=== PATIENT | female | born 1970 | race Caucasian/White ===

== ENCOUNTER → 2017-08-26 10:12 | Outpatient (CLI) | payer MEDICAID, SELFPAY ==
--- NOTE | 2017-08-26 10:16 | XR_ITS ---
XR DEXA axial skeleton HISTORY: ITS.REASON: SCREENING,FCI USE OF MEDS ORDERING PHYSICIAN: Geoffrey Villalta MD PATIENT AGE: 46 years COMPARISON: 07/21/2013 FINDINGS: The BMD measured at the left femoral neck is 0.966 g/cm squared with a T score of -0.5 . This is considered normal according to the World Health Organization criteria. Fracture risk is low. Treatment is advised. L1 L4 density has a T score of 0.9. No L-spine density is increased by 6% and the hip density is increased by 4% compared to the previous exam IMPRESSION: Normal bone density. Recommend follow-up exam August 2019
--- NOTE | 2017-08-26 10:16 | MM_ITS ---
MM Dig screening mamm BI w/CAD CAD Screening COMPARISON: Digital mammograms 07/21/2013 and additional views left breast for 2 2013 INDICATION: There is a history of breast cancer in patient's grandmother. TECHNIQUE: Standard CC and MLO images were obtained. R2 CAD reviewed. FINDINGS: Moderate diffuse fiber glandular densities are seen in both breast primarily upper outer quadrants. There are stable asymmetric nodular densities left breast. There is no suspicious lesion and no suspicious microcalcifications. IMPRESSION: Fibrofatty parenchyma with no suspicious lesion seen BI-RADS Category: 2 Benign Finding(s) RECOMMENDED FOLLOW-UP: 1YR - 1 YEAR FOLLOW-UP (A letter has been sent to the patient regarding results of the study.)
== END ==
PROVIDERS: PCP Emergency Medicine; Visit Provider Obstetrics & Gynecology
DX: Z12.31 Encounter for screening mammogram for malignant neoplasm of breast (principal); Z78.0 Asymptomatic menopausal state; Z13.820 Encounter for screening for osteoporosis
CPT/HCPCS: 77067; 77080

== ENCOUNTER 2018-01-03 07:24 | Observation (INO) ==
--- NOTE | 2018-01-03 08:41 | Emergency Department Note ---
ED Disposition Clinical Impression: Perianal abscess, Tobacco use Disposition: Home, Self-Care Condition on Discharge: Good Instructions: DI for Skin Abscess Referrals: Sim Lakhani MD [Primary Care Provider] - - Critical Care Critical Care Time: No Attestation: On 01/03/18, the high probability of a clinically significant, sudden or life threatening deterioration of the following system(s) required my full and direct attention, intervention and personal management. The time I documented below is in addition to time spent performing reported procedures but includes the following listed in this critical care notation. Medical Decision Making - Medical Records Medical records reviewed: Yes: I reviewed the patient's medical records. - Jonny Inquiry Pt receiving controlled substance: No Vital Signs: 01/03/18 07:29 01/03/18 08:55 01/03/18 10:00 Temperature 98.3 F Temperature Source Oral Pulse Rate [Right Brachial] 82 72 68 Respiratory Rate 18 18 18 Blood Pressure [Right Arm] 132/92 123/80 139/64 Blood Pressure Mean [Right Arm] 105 94 89 Blood Pressure Source [Right Arm] Automatic Cuff Automatic Cuff Automatic Cuff Blood Pressure Position [Right Arm] Sitting Sitting Sitting 02 Sat by Pulse Oximetry 99 98 100 Oxygen Delivery Method Room Air Room Air Room Air 01/03/18 10:46 Temperature Temperature Source Pulse Rate [Right Brachial] 70 Respiratory Rate 18 Blood Pressure [Right Arm] 121/70 Blood Pressure Mean [Right Arm] 87 Blood Pressure Source [Right Arm] Automatic Cuff Blood Pressure Position [Right Arm] Sitting 02 Sat by Pulse Oximetry 100 Oxygen Delivery Method Room Air - Lab Data Lab results reviewed: Yes: I reviewed the patient's lab results. Lab Results 01/03/18 08:35: Stool Occult Blood Negative 01/03/18 08:50: WBC 16.7 H, RBC 4.68, Hgb 15.2, Hct 46.4, MCV 99.1 H, MCH 32.5 H , MCHC 32.8, RDW 12.4, Plt Count 339, MPV 6.9 L, Neut % (Auto) 78.5, Lymph % ( Auto) 15.8, [place] % (Auto) 4.6, Eos % (Auto) 0.9, Baso % (Auto) 0.2, Neut # (Auto ) 13.1 H, Lymph # (Auto) 2.7, [place] # (Auto) 0.8, Eos # (Auto) 0.2, Baso # (Auto ) 0.0, Total Counted 100, Neutrophils % (Manual) 86 H, Band Neutrophils % 2.0, Lymphocytes % (Manual) 6 L, Monocytes % (Manual) 6, Platelet Estimate Normal, ESR 33 H 01/03/18 08:50: Sodium 138, Potassium 3.6, Chloride 104, Carbon Dioxide 23, Anion Gap 14.6, BUN 8, Creatinine 0.88, Estimated Creat Clear 90, Estimated GFR 69, Est GFR ( Amer) 83, Glucose 113 H, Calcium 9.3, Total Bilirubin 1.0, AST 8 L, ALT 28, Alkaline Phosphatase 78, C-Reactive Protein 1.8 H, Total Protein 7.8, Albumin 3.9, Globulin 3.9 H, Albumin/Globulin Ratio 1.0 L 01/03/18 08:50: Lactate 1.0 01/03/18 09:00: Urine Color Yellow, Urine Appearance Clear, Urine pH 6.0, Ur Specific [place] 1.025, Urine Protein Negative, Urine Glucose (UA) Negative, Urine Ketones Negative, Urine Blood Trace-l, Urine Nitrate Negative, Urine Bilirubin Negative, Urine Urobilinogen 0.2, Ur Leukocyte Esterase Negative, Urine WBC Occasional, Ur Squamous Epith Cells Occasional, Urine Bacteria 2+, Urine Mucus 4+ 01/03/18 09:00: Urine HCG, Qual Negative Result diagrams: 01/03/18 08:50 01/03/18 08:50 Orders (Tests/Meds): ED MEDICATIONS Generic Name Dose Route Start Last Admin Trade Name Freq PRN Reason Stop Dose Admin Sodium Chloride 1,000 mls @ 200 mls/hr 01/03/18 08:45 01/03/18 08:57 Sod Chlor 0.9% 1000ml Bag IV 02/02/18 08:44 200 mls/hr .Q5H VITO Administration Ampicillin Sodium/Sulbactam 100 mls @ 200 mls/hr 01/03/18 11:45 Sodium 3 gm/ Sodium Chloride IV 01/17/18 11:44 Q6H VITO Protocol Sodium Chloride 10 ml 01/03/18 10:40 01/03/18 10:44 Rad-Saline Flush 10ml Syringe IV 02/02/18 10:39 10 ml NEEDED PRN Administration Maintain IV Site Discontinued Medications Generic Name Dose Route Start Last Admin Trade Name Freq PRN Reason Stop Dose Admin Diatrizoate Meglum/Diatrizoate Sod 30 ml 01/03/18 08:51 01/03/18 08:57 Gastrografin 66%-10% 30ml PO 01/03/18 08:52 30 ml ONCE ONE Administration Hydromorphone HCl 1 mg 01/03/18 11:36 Dilaudid 2mg/Ml Syringe IV 01/03/18 11:37 ONCE ONE Iopamidol 75 ml 01/03/18 10:40 01/03/18 10:44 [id number]; 75ml Vial IV 01/03/18 10:41 75 ml ONCE ONE Administration Protocol Ketorolac Tromethamine 30 mg 01/03/18 10:42 01/03/18 10:46 Toradol 30mg/Ml Vial IV 01/03/18 10:43 30 mg ONCE ONE Administration Ondansetron HCl 4 mg 01/03/18 11:36 Zofran 4mg/2ml Vial IV 01/03/18 11:37 ONCE ONE ORDERS Category Date Time Status Blood Culture Stat Micro 01/03/18 08:50 Received Urine Culture Stat Micro 01/03/18 09:00 Received - CT Data CT Scan: Abdomen, Pelvis Time Received: 11:[address] Reviewed: Yes: I have viewed the radiologist's interpretation Preliminary Findings: Abnormal (see report) - Physician Consults Physician Consulted: krystal Reason -: Pt condition Skin/Abscess/FB HPI - General Chief complaint: Skin/Abscess/Foreign Body Stated complaint: cyst and nausea Time Seen by Provider: 01/03/18 08:00 Mode of Arrival: Ambulatory Source of Information: Patient, Medical Record Limitations: No Limitations Description of Symptoms (Recalled from ER Triage Doc. by RN): Pt reports she is concerned she may have a rectal abscess. Pt reports has pressure on L side of rectal area x3 days. Pt reports has had normal BMs. Pt reports she had a rectal abscess 15 years ago with similar symptoms - History of Present Illness HPI narrative: over the last few days has perirectal pain with no fever or vomiting and blood in stool complaint: abscess/boil Onset (ago): day(s) Tetanus up to date: unsure Severity: moderate Associated symptoms: denies other symptoms Treatments prior to arrival: none - Related Data Home Medications Medication Instructions Recorded Confirmed cholecalciferol (vitamin D3) 5,000 5,000 unit PO DAILY cap 10/11/17 01/03/18 unit capsule Lisinopril/Hydrochlorothiazide 1 tab PO DAILY 01/03/18 01/03/18 [Lisinopril-Hctz 10-12.5 mg Tab] Medroxyprogesterone Acetate 150 mg IM [id number] 01/03/18 01/03/18 [Depo-Provera] Allergies Allergy/AdvReac Type Severity Reaction Status Date / Time No Known Allergies Allergy Verified 01/03/18 07:35 [facility] History I have reviewed the patient's past medical history: Yes Medical History: Denies:: Cancer, Diabetes Mellitus Type 1, Diabetes Mellitus Type 2 Laterality Cases: Right: Carpal Tunnel Release - Social History Smoking Status: Current every day smoker Tobacco Type: cigarettes # Packs/Day (cigarettes): 1 Alcohol Intake: current Alcohol Intake Frequency:: holidays/special occasions only - Psychiatric History Expresses thoughts of harming self/others: None Suicide Plan Description: No Plan ROS Obtained: Yes All systems reviewed & no additional complaints - Constitutional Constitutional: Denies fever(s) - Eyes Eyes: Denies change in vision - ENT Ears, Nose, Mouth, and Throat: Denies dizziness - Cardiovascular Cardiovascular: Denies chest pain - Respiratory Respiratory: No cough - Gastrointestinal Gastrointestingal: Reports: as per HPI, other. Denies: abdominal pain, bright red blood in stools, black, tarry stools - Genitourinary Female Genitourinary: Denies hematuria - Musculoskeletal Musculoskeletal: Denies joint pain - Integumentary/Breasts Skin/Breast: Denies rash - Neurologic Neurologic: Denies seizure-like activity Physical Exam - General General appearance: alert - Head Head exam: normocephalic - Eye Eye exam: Present: PERRL, EOMI - ENT ENT exam: Present: mucous membranes moist - Neck Neck exam: Present: trachea midline - Respiratory Respiratory exam: Present: normal lung sounds bilaterally - Cardiovascular Cardiovascular exam: Present: regular rate. Absent: systolic murmur - Abdominal Exam Abdominal exam: Present: soft Abdominal tenderness: Present: moderate - Rectal Exam Rectal exam: Present: normal rectal tone, heme (-) stool, tenderness - Neurological Exam Neurological exam: Present: alert, oriented X3, CN II-XII intact - Psychiatric Psychiatric exam: Present: normal affect - Skin Skin exam: Absent: rash
[2018-01-03 09:24] LABS: Appearance,Urine CLEAR (Clear); Bilirubin,Urine Negative (Negative); Blood, Urine TRACE-L (Negative); Color,Urine YELLOW (Yellow); Glucose,Urine (UA) Negative (Negative); Ketones,Urine Negative (Negative); Leukocyte Esterase,Urine Negative (Negative); Microscopic, Urine URINE MICROSCOPIC (MICROSCOPIC); Protein,Urine Negative (Negative); Specific Gravity, Urine 1.025 (1.005-1.030); Urobilinogen,Urine 0.2 EU/dl (0.2)
[2018-01-03 09:30] LABS: Basophils % 0.2 % (0.1-2.0); Eosinophils # 0.2 K/mm3 (0.0-0.4); Eosinophils % 0.9 % (0.1-12.0); Hematocrit 46.4 % (37.0-47.0); Hemoglobin 15.2 g/dL (12.2-16.2); Lymphocytes # 2.7 K/mm3 (0.7-4.5); Lymphocytes % 15.8 K/mm3 (10-50); Mean Corpuscular HGB Conc 32.8 g/dL (31.8-35.4); Mean Corpuscular Hemoglobin 32.5 pg (27.0-31.2); Mean Corpuscular Volume 99.1 fl (81-99); Mean Platelet Volume 6.9 fl (7.4-10.4); Monocytes # 0.8 K/mm3 (0.1-1.0); Monocytes % 4.6 % (1.7-9.3); Neutrophils # 13.1 K/mm3 (1.8-7.8); Neutrophils % 78.5 % (37.0-80.0); Platelet Count 339 K/mm3 (142-424); Red Blood Count 4.68 M/mm3 (4.20-5.40); Red Cell Distribution Width 12.4 % (11.5-17.5); White Blood Count 16.7 K/mm3 (4.8-10.8)
[2018-01-03 09:33] LABS: Bacteria,Urine 2+ /lpf; Mucus,Urine 4+ /lpf; Squamous Epithelial Cell,Urine Occasional #/hpf (0-5); WBC,Urine Occasional #/hpf (0-3)
[2018-01-03 09:38] LABS: Albumin Level 3.9 gm/dL (3.4-5.0); Anion Gap 14.6 mEq/L (5-15); C-Reactive Protein 1.8 mg/L (0.0-0.9); Calcium 9.3 mg/dL (8.5-10.1); Globulin 3.9 gm/dl (1.3-3.2); Potassium 3.6 mmoL/L (3.5-5.1); Total Protein,Serum 7.8 gm/dL (6.4-8.2)
[2018-01-03 10:10] LABS: Lymphocytes % 6 % (10-50); Monocytes % 6 % (2-9); Neutrophils % 86 % (42-76); Total Cells Counted 100
[2018-01-03 11:02] LABS: Erythrocyte Sedimentation Rate 33 mm/hr (0-20)
--- NOTE | 2018-01-03 13:21 | Pharmacy Consult Notes ---
[facility] Pharmacy VTE Monitoring - Patient Demographics Admission date: 01/03/18 Report Date: 01/03/18 Time: 13:21 Allergies/Adverse Reactions: Patient Allergies No Known Allergies Allergy (Verified 01/03/18 07:35) Height: 1.63 m Weight: 72.235 kg Patient Problems: Current Active Problems Perianal abscess (Acute) Tobacco use (Acute) - VTE Risk Labs: VTE Related Lab Results Hgb 15.2 g/dL (12.2-16.2) 01/03/18 08:50 Hct 46.4 % (37.0-47.0) 01/03/18 08:50 Plt Count 339 K/mm3 (142-424) 01/03/18 08:50 BUN 8 mg/dL (7-18) 01/03/18 08:50 Creatinine 0.88 mg/dL (0.55-1.02) 01/03/18 08:50 Estimated Creat Clear 90 mL/min (0-300) 01/03/18 08:50 VTE Score: 1 VTE Risk Level: Very Low Risk Clinical Trial Participant: No - Prophylaxis VTE Prophylaxis Ordered?: Yes Types of VTE Prophylaxis: TEDS Knee High
--- NOTE | 2018-01-03 15:31 | Consult Report ---
*Admission Date: 01/03/18 *Chief complaint: "Rectal pain" *History of present illness: Patient is a 47-year-old white female. She is a history of perianal abscess about 15 or 16 years ago which apparently required incision and drainage under local. This was done at an outside facility. She was in her usual state of health until Wednesday, 2 days ago, she developed some pain near the prior area. She denied any bleeding. Denied drainage. She presented to the emergency department where rectal exam revealed some minor induration. She had CT scan performed which revealed findings of left posterior 3 cm abscess. She was admitted for inpatient management and surgical consultation. Review of Systems - Review of Systems Review of systems:: pertinent systems reviewed and negative unless documented below - *Neurologic Denies dizziness, Denies seizure-like activity [facility] History Medical History: Reports:: Hypertension Denies:: Cancer, Diabetes Mellitus Type 1, Diabetes Mellitus Type 2, MRSA Laterality Cases: Right: Carpal Tunnel Release Other Surgeries: Yes: Amputation: No Fractures: No - *Social History Educational Level: Completed College Smoking Status: Current some day smoker Tobacco Type: cigarettes # Packs/Day (cigarettes): 1 #Yrs smoked (if former smoker): 20 Alcohol Intake: current Alcohol Intake Frequency:: a few times a week Occupational Status: employed Housing: house Household Members: spouse, children - Psychiatric History Expresses thoughts of harming self/others: None Suicide Plan Description: No Plan *Family Hx:: Cancer, Diabetes Meds Home Medications Medication Instructions Recorded Confirmed Type cholecalciferol (vitamin D3) 5,000 5,000 unit PO DAILY cap 10/11/17 01/03/18 History unit capsule Lisinopril/Hydrochlorothiazide 1 tab PO DAILY 01/03/18 01/03/18 History [Lisinopril-Hctz 10-12.5 mg Tab] Medroxyprogesterone Acetate 150 mg IM [id number] 01/03/18 01/03/18 History [Depo-Provera] Allergies Allergy/AdvReac Type Severity Reaction Status Date / Time No Known Allergies Allergy Verified 01/03/18 07:35 Exam Vital signs and Labs for Last 24 Hours: Temp Pulse Resp BP Pulse Ox 98.2 F 74 18 118/78 97 01/03/18 12:40 01/03/18 12:40 01/03/18 12:40 01/03/18 12:40 01/03/18 12:40 Laboratory Results - last 24 hr 01/03/18 08:35: Stool Occult Blood Negative 01/03/18 08:50: WBC 16.7 H, RBC 4.68, Hgb 15.2, Hct 46.4, MCV 99.1 H, MCH 32.5 H , MCHC 32.8, RDW 12.4, Plt Count 339, MPV 6.9 L, Neut % (Auto) 78.5, Lymph % ( Auto) 15.8, [place] % (Auto) 4.6, Eos % (Auto) 0.9, Baso % (Auto) 0.2, Neut # (Auto ) 13.1 H, Lymph # (Auto) 2.7, [place] # (Auto) 0.8, Eos # (Auto) 0.2, Baso # (Auto ) 0.0, Total Counted 100, Neutrophils % (Manual) 86 H, Band Neutrophils % 2.0, Lymphocytes % (Manual) 6 L, Monocytes % (Manual) 6, Platelet Estimate Normal, ESR 33 H 01/03/18 08:50: Sodium 138, Potassium 3.6, Chloride 104, Carbon Dioxide 23, Anion Gap 14.6, BUN 8, Creatinine 0.88, Estimated Creat Clear 90, Estimated GFR 69, Est GFR ( Amer) 83, Glucose 113 H, Calcium 9.3, Total Bilirubin 1.0, AST 8 L, ALT 28, Alkaline Phosphatase 78, C-Reactive Protein 1.8 H, Total Protein 7.8, Albumin 3.9, Globulin 3.9 H, Albumin/Globulin Ratio 1.0 L 01/03/18 08:50: Lactate 1.0 01/03/18 09:00: Urine Color Yellow, Urine Appearance Clear, Urine pH 6.0, Ur Specific [place] 1.025, Urine Protein Negative, Urine Glucose (UA) Negative, Urine Ketones Negative, Urine Blood Trace-l, Urine Nitrate Negative, Urine Bilirubin Negative, Urine Urobilinogen 0.2, Ur Leukocyte Esterase Negative, Urine WBC Occasional, Ur Squamous Epith Cells Occasional, Urine Bacteria 2+, Urine Mucus 4+ 01/03/18 09:00: Urine HCG, Qual Negative I & O for Last 24 hours: Intake & Output 01/01/18 01/02/18 01/03/18 01/04/18 11:59 11:59 11:59 11:59 Weight 160 lb 159 lb 4 oz - *Routine HEENT Exam Head: Present: normocephalic - *Routine Respiratory Exam Present: CTA bilaterally - *Routine Cardiovascular Exam Present: RRR - *Routine Rectal Exam Comments: Visual inspection unremarkable. Is a subtle minor scar in the left posterior lateral location. Palpation posterior to this reveals some induration and is markedly tender. There is no evidence of any cellulitis or fluctuance. Results - Labs 01/03/18 08:50 01/03/18 08:50 Laboratory Results - last 24 hr 01/03/18 08:35: Stool Occult Blood Negative 01/03/18 08:50: WBC 16.7 H, RBC 4.68, Hgb 15.2, Hct 46.4, MCV 99.1 H, MCH 32.5 H , MCHC 32.8, RDW 12.4, Plt Count 339, MPV 6.9 L, Neut % (Auto) 78.5, Lymph % ( Auto) 15.8, [place] % (Auto) 4.6, Eos % (Auto) 0.9, Baso % (Auto) 0.2, Neut # (Auto ) 13.1 H, Lymph # (Auto) 2.7, [place] # (Auto) 0.8, Eos # (Auto) 0.2, Baso # (Auto ) 0.0, Total Counted 100, Neutrophils % (Manual) 86 H, Band Neutrophils % 2.0, Lymphocytes % (Manual) 6 L, Monocytes % (Manual) 6, Platelet Estimate Normal, ESR 33 H 01/03/18 08:50: Sodium 138, Potassium 3.6, Chloride 104, Carbon Dioxide 23, Anion Gap 14.6, BUN 8, Creatinine 0.88, Estimated Creat Clear 90, Estimated GFR 69, Est GFR ( Amer) 83, Glucose 113 H, Calcium 9.3, Total Bilirubin 1.0, AST 8 L, ALT 28, Alkaline Phosphatase 78, C-Reactive Protein 1.8 H, Total Protein 7.8, Albumin 3.9, Globulin 3.9 H, Albumin/Globulin Ratio 1.0 L 01/03/18 08:50: Lactate 1.0 01/03/18 09:00: Urine Color Yellow, Urine Appearance Clear, Urine pH 6.0, Ur Specific [place] 1.025, Urine Protein Negative, Urine Glucose (UA) Negative, Urine Ketones Negative, Urine Blood Trace-l, Urine Nitrate Negative, Urine Bilirubin Negative, Urine Urobilinogen 0.2, Ur Leukocyte Esterase Negative, Urine WBC Occasional, Ur Squamous Epith Cells Occasional, Urine Bacteria 2+, Urine Mucus 4+ 01/03/18 09:00: Urine HCG, Qual Negative Assessment and Plan - Assessment and plan all Dx Assessment and Plan for all problems:: Patient has evidence of a perianal versus perirectal abscess. Plan will be for antibiotics tonight and incision and drainage tomorrow.
[2018-01-04 06:48] LABS: Basophils % 0.3 % (0.1-2.0); Eosinophils # 0.2 K/mm3 (0.0-0.4); Eosinophils % 1.2 % (0.1-12.0); Hematocrit 34.6 % (37.0-47.0); Lymphocytes # 2.3 K/mm3 (0.7-4.5); Lymphocytes % 17.5 K/mm3 (10-50); Mean Corpuscular HGB Conc 32.4 g/dL (31.8-35.4); Mean Corpuscular Hemoglobin 32.6 pg (27.0-31.2); Mean Corpuscular Volume 100.6 fl (81-99); Mean Platelet Volume 6.9 fl (7.4-10.4); Monocytes # 0.7 K/mm3 (0.1-1.0); Monocytes % 5.7 % (1.7-9.3); Neutrophils # 9.9 K/mm3 (1.8-7.8); Neutrophils % 75.2 % (37.0-80.0); Platelet Count 291 K/mm3 (142-424); Red Blood Count 3.43 M/mm3 (4.20-5.40); Red Cell Distribution Width 12.4 % (11.5-17.5); White Blood Count 13.1 K/mm3 (4.8-10.8)
[2018-01-04 06:55] LABS: Anion Gap 13.4 mEq/L (5-15); Potassium 3.4 mmoL/L (3.5-5.1)
[2018-01-04 07:36] LABS: Calcium 8.2 mg/dL (8.5-10.1)
[2018-01-04 07:37] LABS: Hemoglobin 11.4 g/dL (12.2-16.2)
--- NOTE | 2018-01-04 08:51 | History & Physical Report ---
*Admission Date: 01/03/18 *Chief complaint: rectal pain *History of present illness: Patient is a 47-year-old white female. She is a history of perianal abscess about 15 or 16 years ago which apparently required incision and drainage under local. This was done at an outside facility. She was in her usual state of health until Wednesday, 2 days ago, she developed some pain near the prior area. She denied any bleeding. Denied drainage. She presented to the emergency department where rectal exam revealed some minor induration. She had CT scan performed which revealed findings of left posterior 3 cm abscess. She was admitted for inpatient management and surgical consultation. [facility] History I have reviewed the patient's past medical history: Yes Medical History: Reports:: Hypertension Denies:: Cancer, Diabetes Mellitus Type 1, Diabetes Mellitus Type 2, MRSA Laterality Cases: Right: Carpal Tunnel Release Other Surgeries: Yes: Amputation: No Fractures: No - *Social History Educational Level: Completed College Smoking Status: Current some day smoker Tobacco Type: cigarettes # Packs/Day (cigarettes): 1 #Yrs smoked (if former smoker): 20 Alcohol Intake: current Alcohol Intake Frequency:: a few times a week Occupational Status: employed Housing: house Household Members: spouse, children - Psychiatric History Expresses thoughts of harming self/others: None Suicide Plan Description: No Plan *Family Hx:: Cancer, Diabetes Review of Systems - Review of Systems Review of systems:: pertinent systems reviewed and negative unless documented below - Constitutional Denies fever(s) - Eyes Denies change in vision - ENT Denies sore throat - *Cardiovascular Denies chest pain - *Respiratory Denies cough - *Gastrointestinal Reports other (rectal pain ), Denies abdominal pain - *Genitourinary Denies blood in urine - *Musculoskeletal Denies joint pain - Integumentary/Breasts Denies rash - *Neurologic Denies dizziness, Denies seizure-like activity - Psychiatric Denies anxiety Meds Home Medications Medication Instructions Recorded Confirmed Type cholecalciferol (vitamin D3) 5,000 5,000 unit PO DAILY cap 10/11/17 01/03/18 History unit capsule Lisinopril/Hydrochlorothiazide 1 tab PO DAILY 01/03/18 01/03/18 History [Lisinopril-Hctz 10-12.5 mg Tab] Medroxyprogesterone Acetate 150 mg IM [id number] 01/03/18 01/03/18 History [Depo-Provera] Allergies Allergy/AdvReac Type Severity Reaction Status Date / Time No Known Allergies Allergy Verified 01/03/18 07:35 Exam Vital signs and Labs for Last 24 Hours: Temp Pulse Resp BP Pulse Ox 98.5 F 101 H 18 114/74 96 01/04/18 08:00 01/04/18 08:00 01/04/18 08:00 01/04/18 08:00 01/04/18 08:00 Laboratory Results - last 24 hr 01/03/18 08:50: WBC 16.7 H, RBC 4.68, Hgb 15.2, Hct 46.4, MCV 99.1 H, MCH 32.5 H , MCHC 32.8, RDW 12.4, Plt Count 339, MPV 6.9 L, Neut % (Auto) 78.5, Lymph % (Auto) 15.8, [place] % (Auto) 4.6, Eos % (Auto) 0.9, Baso % (Auto) 0.2, Neut # (Auto) 13.1 H, Lymph # (Auto) 2.7, [place] # (Auto) 0.8, Eos # (Auto) 0.2, Baso # (Auto) 0.0, Total Counted 100, Neutrophils % (Manual) 86 H, Band Neutrophils % 2.0, Lymphocytes % (Manual) 6 L, Monocytes % (Manual) 6, Platelet Estimate Normal, ESR 33 H 01/03/18 08:50: Sodium 138, Potassium 3.6, Chloride 104, Carbon Dioxide 23, Anion Gap 14.6, BUN 8, Creatinine 0.88, Estimated Creat Clear 90, Estimated GFR 69, Est GFR ( Amer) 83, Glucose 113 H, Calcium 9.3, Total Bilirubin 1.0, AST 8 L, ALT 28, Alkaline Phosphatase 78, C-Reactive Protein 1.8 H, Total Protein 7.8, Albumin 3.9, Globulin 3.9 H, Albumin/Globulin Ratio 1.0 L 01/03/18 08:50: Lactate 1.0 01/03/18 09:00: Urine Color Yellow, Urine Appearance Clear, Urine pH 6.0, Ur Specific [place] 1.025, Urine Protein Negative, Urine Glucose (UA) Negative, Urine Ketones Negative, Urine Blood Trace-l, Urine Nitrate Negative, Urine Bilirubin Negative, Urine Urobilinogen 0.2, Ur Leukocyte Esterase Negative, Urine WBC Occasional, Ur Squamous Epith Cells Occasional, Urine Bacteria 2+, Urine Mucus 4+ 01/03/18 09:00: Urine HCG, Qual Negative 01/04/18 06:16: WBC 13.1 H, RBC 3.43 L D, Hgb 11.4 L D, Hct 34.6 L, MCV 100.6 H, MCH 32.6 H, MCHC 32.4, RDW 12.4, Plt Count 291, MPV 6.9 L, Neut % (Auto) 75.2, Lymph % (Auto) 17.5, [place] % (Auto) 5.7, Eos % (Auto) 1.2, Baso % (Auto) 0.3, Neut # (Auto) 9.9 H, Lymph # (Auto) 2.3, [place] # (Auto) 0.7, Eos # (Auto) 0.2, Baso # (Auto) 0.0 01/04/18 06:16: Sodium 143, Potassium 3.4 L, Chloride 109 H, Carbon Dioxide 24, Anion Gap 13.4, BUN 7, Creatinine 0.78, Estimated Creat Clear 101, Estimated GFR 79, Est GFR ( Amer) 95, Glucose 107 H, Calcium 8.2 L D I & O for Last 24 hours: Intake & Output 01/01/18 01/02/18 01/03/18 01/04/18 11:59 11:59 11:59 11:59 Intake Total 2453 / 2453 Balance 2453 / 2453 Weight 160 lb 159 lb 4 oz Microbiology Reports for the Last 24 Hours: Microbiology 01/03/18 09:00 Urine,Clean Catch Urine Culture - Final Multiple organisms, suggests contamination. - Constitutional no acute distress - *Routine HEENT Exam Head: Present: normocephalic Eye: Present: EOMI, PERRL ENT: Present: mucous membranes dry - *Routine Neck Exam Present: supple - *Routine Respiratory Exam Present: CTA bilaterally - *Routine Cardiovascular Exam Present: RRR. Absent: murmur - *Routine Abdominal Exam Present: soft - *Routine Rectal Exam Visual: Present: normal rectal tone Comments: tender - done in the ed - *Routine Extremities Exam Present: full ROM - *Routine Skin Exam Present: intact - *Routine Neurological Exam Present: alert, oriented X3, CN II-XII intact - Routine Psychiatric Exam Present: normal affect Assessment and Plan (1) Perianal abscess Current visit: Yes Status: Acute Category: Medical Code(s): K61.0 - Anal abscess
--- NOTE | 2018-01-04 10:56 | Progress Note ---
[facility] Anesthesia Checklist - Structural Data Admitted From: Home Planned Operative Procedure/s: i/d perirectal abcess Consent for Planned Operative Procedure(s) Verified: Yes - Airway Assessment C-Spine Mobility Assessed: Yes TMJ Mobility Assessed: Yes Dentition: Good Dentition - Neurological Assessment Level of Consciousness: Awake, Alert, Appropriate - Anesthesia Plan Anesthesia Risk discussed: Yes Anesthesia Plan: Verified ASA Class: II Anesthesia Type: General [facility] Anesthesia HX I have reviewed the patient's past medical history: Yes Medical History: Reports:: Hypertension Denies:: Cancer, Diabetes Mellitus Type 1, Diabetes Mellitus Type 2, MRSA Laterality Cases: Right: Carpal Tunnel Release Other Surgeries: Yes: Amputation: No Fractures: No *Family Hx:: Cancer, Diabetes
--- NOTE | 2018-01-04 11:53 | Operative Note ---
Date of procedure: 01/04/18 Pre-op Diagnosis:: Perianal abscess Post-op Diagnosis:: Perirectal abscess Procedure performed:: Incision and drainage of perirectal abscess Surgeon:: Rajeev Enriquez MD Anesthesia: LMA Estimated blood loss (mL): 15 Operative findings:: She had a pocket of thick pus contained within an abscess in the left posterior lateral location superior to the sphincter muscles in a perirectal location. Operative note:: Consent was obtained. Patient was taken to the operating room. She was positioned in a supine position and general anesthesia was induced via LMA. She was repositioned in traditional lithotomy position. Perineum was prepped and draped in standard surgical fashion. Digital examination was performed which revealed significant induration in the left posterior lateral location. There was no erythema or fluctuance however. Spring anoscope was inserted. There was evidence of scar from previous incision and drainage site. The 18- gauge needle was inserted several times repositioning initially without return of any pus. However, ultimately the abscess pocket was encountered and at least 10 cc of very thick brownish pus was evacuated. Limited cruciate incision was made at this site. Blunt dissection was carried out bluntly dissecting free any loculations. Abscess cavity was probed and evacuated. It was thoroughly irrigated. Hemostasis was achieved with electrocautery. Local anesthetic was infiltrated. It was packed with 1/2 inch plain packing gauze soaked in topical anesthetic. Clean dry sterile dressing was applied. Condition: stable Disposition: PACU Specimens:: Cultures Complications:: None immediately apparent
--- NOTE | 2018-01-04 11:55 | Progress Note ---
[facility] Anesthesia Record Part II Discharge Time: 12:25 Destination: Medical Surgical Department PACU nurse assessment reviewed?: Yes Patient Condition:: Good Anesthesia Complications:: None
--- NOTE | 2018-01-04 11:55 | Progress Note ---
[facility] Anesthesia Record Part I Intake, IV Amount: 600 Estimated blood loss (mL): 5 Urine output (mL): 0 Blood Products used (#): none Blood Pressure: 95/52 SaO2: 96 Pulse Rate: 77 Respiratory Rate: 11 Temperature: 98.2 F Patient is:: Awake, Stable Stable to PACU at:: 11:55
--- NOTE | 2018-01-05 09:46 | Progress Note ---
Subjective Patient reports: feels better Narrative: Patient feels infinitely better after surgery. Pressure is relieved. She has had bowel movement and has tolerated the dressing change. Exam Vital signs and Labs for Last 24 Hours: Temp Pulse Resp BP Pulse Ox 98.3 F 74 18 119/73 99 01/05/18 07:55 01/05/18 07:55 01/05/18 07:55 01/05/18 07:55 01/05/18 07:55 I & O for Last 24 hours: Intake & Output 01/02/18 01/03/18 01/04/18 01/05/18 11:59 11:59 11:59 11:59 Intake Total 3053 / 3053 1914.6 / 1914.6 Balance 3053 / 3053 1914.6 / 1914.6 Weight 160 lb 159 lb 4 oz Microbiology Reports for the Last 24 Hours: Microbiology 01/03/18 08:50 Blood Blood Culture - Preliminary NO GROWTH AFTER 48 HOURS 01/03/18 08:50 Blood Blood Culture - Preliminary NO GROWTH AFTER 48 HOURS 01/04/18 Unknown Anus Gram Stain - Final 01/03/18 09:00 Urine,Clean Catch Urine Culture - Final Multiple organisms, suggests contamination. - *Routine Rectal Exam Comments: Wound is clean. Progress Note: A&P (1) Perianal abscess Status: Acute Current Visit: Yes Assessment and Plan for All Diagnoses:: Okay for discharge home on oral Augmentin and once daily quarter-inch plain packing. She may do sitz baths after removing the packing and then replaced. I will see her in the office next week.
--- NOTE | 2018-01-05 12:22 | Discharge Summary ---
General - General Admission date:: 01/03/18 Discharge date: 01/05/18 HPI HPI: Patient is a 47-year-old white female. She is a history of perianal abscess about 15 or 16 years ago which apparently required incision and drainage under local. This was done at an outside facility. She was in her usual state of health until Wednesday, 2 days ago, she developed some pain near the prior area. She denied any bleeding. Denied drainage. She presented to the emergency department where rectal exam revealed some minor induration. She had CT scan performed which revealed findings of left posterior 3 cm abscess. She was admitted for inpatient management and surgical consultation. Hospital Course Hospital Course: pt has did well in hospital on ivf and abx and was seen by surg - Consent was obtained. Patient was taken to the operating room. She was positioned in a supine position and general anesthesia was induced via LMA. She was repositioned in traditional lithotomy position. Perineum was prepped and draped in standard surgical fashion. Digital examination was performed which revealed significant induration in the left posterior lateral location. There was no erythema or fluctuance however. [place]ow anoscope was inserted. There was evidence of scar from previous incision and drainage site. The 18-gauge needle was inserted several times repositioning initially without return of any pus. However, ultimately the abscess pocket was encountered and at least 10 cc of very thick brownish pus was evacuated. Limited cruciate incision was made at this site. Blunt dissection was carried out bluntly dissecting free any loculations. Abscess cavity was probed and evacuated. It was thoroughly irrigated. Hemostasis was achieved with electrocautery. Local anesthetic was infiltrated. It was packed with 1/2 inch plain packing gauze soaked in topical anesthetic. Clean dry sterile dressing was applied. pt will be d/c and on abx and pain meds with f/u next week Objective Vital signs: Temp Pulse Resp BP Pulse Ox 98.3 F 74 18 119/73 99 01/05/18 07:55 01/05/18 07:55 01/05/18 07:55 01/05/18 07:55 01/05/18 07:55 no acute distress - *Routine HEENT Exam Head: Present: normocephalic Eye: Present: EOMI, PERRL ENT: Present: mucous membranes dry - *Routine Neck Exam Present: supple - *Routine Respiratory Exam Present: CTA bilaterally - *Routine Cardiovascular Exam Present: RRR. Absent: murmur - *Routine Abdominal Exam Present: soft - *Routine Extremities Exam Present: full ROM - *Routine Skin Exam Comments: has post op packing - *Routine Neurological Exam Present: alert, oriented X3, CN II-XII intact - Routine Psychiatric Exam Present: normal affect Results Labs on day of discharge: Preliminary micro results at discharge 01/03/18 08:50 Blood Culture - Preliminary Blood NO GROWTH AFTER 48 HOURS 01/03/18 08:50 Blood Culture - Preliminary Blood NO GROWTH AFTER 48 HOURS DS: Diagnosis - Discharge Diagnosis (1) Perianal abscess Status: Acute Discharge Plan - Patient Discharge Instructions ACTIVITY: Continue current activity DIET: continue same diet - Follow up Plan Follow up with: Rajeev Enriquez MD [Staff Physician] - 01/14/18 Disposition: Home, Self-[facility] Medications: Home Medications Medication Instructions Recorded Confirmed Type cholecalciferol (vitamin D3) 5,000 5,000 unit PO DAILY cap 10/11/17 01/03/18 History unit capsule Lisinopril/Hydrochlorothiazide 1 tab PO DAILY 01/03/18 01/03/18 History [Lisinopril-Hctz 10-12.5 mg Tab] Medroxyprogesterone Acetate 150 mg IM [id number] 01/03/18 01/03/18 History [Depo-Provera] Prescriptions/Medication Reconciliation: New Amoxicillin/Potassium Clav [Augmentin 875-125 Tablet] 1 tab PO Q12H #20 tab Continue cholecalciferol (vitamin D3) 5,000 unit capsule 5,000 unit PO DAILY cap Lisinopril/Hydrochlorothiazide [Lisinopril-Hctz 10-12.5 mg Tab] 1 tab PO DAILY Medroxyprogesterone Acetate [Depo-Provera] 150 mg IM [id number]
== END 2018-01-05 12:44 | disposition home or self-care (01) ==
LOC: ER 07:24 → 2ND 11:45 → INTOOBSV 11:45 → 2ND 12:30
PROVIDERS: ADMIT Emergency Medicine; ATTEND Emergency Medicine

== ENCOUNTER → 2018-03-01 16:34 | Outpatient (CLI) | payer MEDICAID, SELFPAY | PROVIDERS: PCP Emergency Medicine; Visit Provider Colon & Rectal Surgery | DX: I10 Essential (primary) hypertension (principal) | CPT/HCPCS: 93005 ==

== ENCOUNTER 2020-04-05 09:43 | Emergency (ER) | payer MEDICAID, SELFPAY ==
[2020-04-05 09:59] VITALS: BP 128/81; PULSE 87; RESP 16; TEMP 36.6; O2SAT 98; BMI 19.3
--- NOTE | 2020-04-05 10:07 | HMH.EDUTC ---
[facility] Disposition Clinical Impression: Exposure to COVID-19 virus Disposition: Home, Self-Care Condition on Discharge: Good Instructions: Preventing the Spread of Coronavirus Discharge Instructions Additional Instructions: Drink plenty of fluids. Take tylenol for pain or fever. Return if you begin to have difficulty breathing. Follow up with your regular doctor. GO TO THE ER FOR ANY WORSENING SYMPTOMS Referrals: Sim Lakhani MD [Primary Care Provider] - Time of Disposition: 10:08 Medical Decision Making - Medical Records Medical records reviewed: No: I reviewed the patient's medical records. - Jonny Inquiry Pt receiving controlled substance: No Vital Signs: 04/05/20 09:59 04/05/20 10:12 Temperature 97.9 F 98.2 F Temperature Source Oral Oral Pulse Rate 78 Pulse Rate [Right] 87 Respiratory Rate 16 16 Blood Pressure 120/64 Blood Pressure [Right Arm] 128/81 Blood Pressure Mean [Right Arm] 96 Blood Pressure Source Automatic Cuff Blood Pressure Source [Right Arm] Automatic Cuff Blood Pressure Position Sitting Blood Pressure Position [Right Arm] Sitting 02 Sat by Pulse Oximetry 98 Oxygen Delivery Method Room Air Room Air [facility] HPI - General Stated complaint: Covid test Time Seen by Provider: 04/05/20 10:07 Mode of Arrival: Ambulatory Source of Information: Patient Limitations: No Limitations Description of Symptoms (Recalled from Triage Doc. by RN): pt was exposed at work, denies symptoms needs test for work HEENT Symptoms (Recalled from RN notes): No Resp Symptoms (Recalled from RN notes): No Skin Symptoms (Recalled from RN notes): No MS Symptoms (Recalled from RN notes): No Functional Status (Recalled from RN notes): na - History of Present Illness Provider Complaint: She was exposed to covid by a coworkers. She denies any symptoms. - Related Data Home Medications Medication Instructions Recorded Confirmed cholecalciferol (vitamin D3) 125 5,000 unit PO DAILY cap 10/11/17 03/21/20 mcg (5,000 unit) capsule Previous Rx's Medication Instructions Recorded oxycodone-acetaminophen 7.5 mg-325 1 tab PO TID PRN #30 tab 02/08/18 mg tablet valacyclovir 1 gram tablet 1,000 mg PO BID #60 tab 11/14/18 lisinopril 10 See Rx Instructions .ROUTE 02/19/20 mg-hydrochlorothiazide 12.5 mg .COMPLEX #90 tab tablet medroxyprogesterone 150 mg/mL 150 mg IM [id number] #1 ml 03/21/20 intramuscular syringe Allergies Allergy/AdvReac Type Severity Reaction Status Date / Time No Known Allergies Allergy Verified 03/21/20 09:06 - Worker's Comp Is this a Worker's Comp case?: No [facility] History - Hepatitis A Screen Drug use history?: No High risk sexual behaviors?: No History of sexually transmitted infection?: No Currently employed?: No Childcare worker?: No Do you have indoor plumbing?: Yes Do you have electricity?: Yes Attestation statement:: This patient has been screened for Hepatitis A risk factors. I have reviewed the patient's past medical history: Yes Medical History: Reports:: Hypertension Denies:: Cancer, Diabetes Mellitus Type 1, Diabetes Mellitus Type 2, MRSA Other Medical History: Reports: Other Comment: Bulging disc in lower back L5-S1 Laterality Cases: Right: Carpal Tunnel Release Other Surgeries: Yes: , Other Amputation: No Fractures: No Comment: Perianal Abscess. 1974-Urethral Dilation. 1989-P*C/S. [place] Teeth Removed - Social History Smoking Status: Current every day smoker Tobacco Type: cigarettes # Packs/Day (cigarettes): 1 #Yrs smoked (if former smoker): 20 Alcohol Intake: never Alcohol Intake Frequency:: a few times a week Occupational Status: employed Housing: house Household Members: spouse, children Family Hx:: Cancer, Diabetes Comment: 1990- TAB ROS Obtained: Yes All systems reviewed & no additional complaints - Constitutional Constitutional: Reports system reviewed and no additional complaints, excep
[2020-04-05 10:12] VITALS: BP 120/64; PULSE 78; RESP 16; TEMP 36.8; O2SAT 98
== END 2020-04-05 10:13 | disposition home or self-care (01) ==
PROVIDERS: Emergency Provider Nurse Practitioner Family; PCP Emergency Medicine
DX: Z20.828 Contact with and (suspected) exposure to other viral communicable diseases (principal); I10 Essential (primary) hypertension; F17.210 Nicotine dependence, cigarettes, uncomplicated
CPT/HCPCS: 99201; U0003

== ENCOUNTER → 2021-01-31 08:15 | Outpatient (CLI) | payer MEDICAID, SELFPAY ==
--- NOTE | 2021-01-31 08:23 | MM_ITS ---
PROCEDURE: MM DIG SCREENING MAMM BI W/CAD Digital Breast Tomosynthesis Included CLINICAL INDICATION: screening xmg There is a history of breast cancer in the patient's maternal grandmother. COMPARISON: MG DMSB DIG MAMM-SCREEN [place] from 07/21/2013 MG DMDXUAVL DIG MAMM-DX UNI ADD VIEWS-LT from 08/09/2013 MG SCBI MM Dig screening mamm BI w/CAD from 08/26/2017 TECHNIQUE: Standard CC and MLO images and 3D Tomosynthesis was obtained. R2 CAD reviewed. FINDINGS: Moderate diffuse somewhat heterogenic fibroglandular densities are seen throughout both breasts. There are stable small nodular densities left breast. There is a benign-appearing nodular density upper central portion right breast not definitely seen on previous studies. This has smooth borders however recommend the patient return for spot compression view and ultrasound for additional evaluation. There are no suspicious microcalcifications. IMPRESSION: Moderate heterogenic breast density with possible new nodular density right breast BI-RAD Category: 0 Need Additional Imaging Evaluation FOLLOW-UP: IMM Immediate Follow-up Recommended (A letter has been sent to the patient regarding results of the study.) Dictated by: Dr. Jayson Esipnoza MD 02/13/2021 13:03 Dr. Jayson Espinoza MD in [place] 02/13/2021 13:03
--- NOTE | 2021-01-31 08:23 | XR_ITS ---
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 The left hip BMD is 0.822 with a T-score of -0.2. The lumbar spine BMD is 1.097 with a T-score of 0.5. Previously the lowest density is in the left femoral neck with a T-score -0.5 IMPRESSION: This patient is considered normal according to the World Health Organization criteria. Fracture risk is low. Based on these results a follow-up exam is recommended in 2 year. Dictated by: Brandt Deleon MD 01/31/2021 16:08 Brandt Deleon MD in [place] 01/31/2021 16:08
[2021-01-31 10:06] LABS: Basophils # 0.1 K/mm3 (0-0.2); Basophils % 0.7 % (0.1-2.0); Eosinophils # 0.3 K/mm3 (0.0-0.4); Eosinophils % 2.6 % (0.1-12.0); Hematocrit 44.2 % (37.0-47.0); Hemoglobin 14.1 g/dL (12.2-16.2); Lymphocytes # 2.5 K/mm3 (0.7-4.5); Mean Platelet Volume 8.2 fl (7.4-10.4); Monocytes # 0.8 K/mm3 (0.1-1.0); Monocytes % 7.1 % (1.7-9.3); Neutrophils # 7.7 K/mm3 (1.8-7.8); Neutrophils % 67.6 % (37.0-80.0); Platelet Count 372 K/mm3 (142-424); Red Blood Count 4.29 M/mm3 (4.20-5.40); Red Cell Distribution Width 13.4 % (11.5-17.5); White Blood Count 11.4 K/mm3 (4.8-10.8)
[2021-01-31 10:29] LABS: Alanine Aminotransferase 34 U/L (12-78); Albumin Level 4.1 g/dl (3.5-5.0); Albumin/Globulin Ratio 1.5 (1.1-1.8); Alkaline Phosphatase 70 U/L (38-126); Anion Gap 14.6 mEq/L (5-15); Aspartate Amino Transferase 29 U/L (14-36); Bilirubin,Total 0.3 mg/dl (0.2-1.3); Blood Urea Nitrogen 11 mg/dl (7-17); Calcium 9.8 mg/dl (8.4-10.2); Carbon Dioxide 24 mmol/L (22.0-30.0); Chloride 105 mmol/L (98-107); Chol/HDL Ratio 3.3 (1-3.5); Cholesterol 220 mg/dl (140-200); Estimated Glomerular Filt Rate 88 ml/min (>60); GFR (African American) 107 ML/MIN (>60); Globulin 2.7 g/dL (1.3-3.2); Glucose 120 mg/dl (74-100); HDL Cholesterol 66 mg/dl (40-60); Potassium 4.6 mmoL/L (3.5-5.1); Sodium 139 mmol/L (136-145); Total Protein,Serum 6.8 g/dl (6.3-8.2); Triglycerides 106 mg/dl (30-150); VLDL Cholesterol 21 mg/dL (0-40)
[2021-01-31 10:40] LABS: Direct LDL Cholesterol 122.86 mg/dL (100-129)
== END ==
PROVIDERS: PCP Emergency Medicine; Visit Provider Nurse Practitioner Obstetrics & Gynecology
DX: Z01.419 Encounter for gynecological examination (general) (routine) without abnormal findings (principal); Z12.31 Encounter for screening mammogram for malignant neoplasm of breast; Z79.3 Long term (current) use of hormonal contraceptives
CPT/HCPCS: 36415; 77063; 77067; 77080; 80053; 80061; 85025

== ENCOUNTER → 2021-03-13 13:22 | Outpatient (CLI) | payer MEDICAID, SELFPAY ==
--- NOTE | 2021-03-13 13:22 | US_ITS ---
PROCEDURE: MM DIG MAMM DX UNILAT RT CAD Digital Breast Tomosynthesis Included CLINICAL INDICATION: Abnormal Mammogram COMPARISON: MG DMDXUAVL DIG MAMM-DX UNI ADD VIEWS-LT from 08/09/2013 MG SCBI MM Dig screening mamm BI w/CAD from 08/26/2017 MG MM DIG SCREENING MAMM BI W/CAD from 01/31/2021 US US BREAST RT COMPLETE from 03/13/2021 TECHNIQUE: Spot-compression views are performed along with right breast ultrasound FINDINGS: There is a persistent 12 by 7 mm nodular nodule in the 12 o'clock region of the right breast. Margins are somewhat obscured. No malignant appearing microcalcifications. Right breast ultrasound: There is a macrolobular hypoechoic nodule measuring 10 x 5 mm at the 12 o'clock region of the right breast outer 1/3. This may represent a complicated cyst. There is poor through transmission of sound however. Suggest ultrasound-guided FNA with mammogram to follow. A 6 mm cyst is also present at 12 o'clock mid. Hypoechoic nodule at 10 o'clock outer possibly due to a complicated cyst. 3 mm cyst at 11 o'clock outer. 5 mm cyst at 10 o'clock outer IMPRESSION: Macrolobular hypoechoic nodule at 12 o'clock corresponding to the mammographic abnormality which may represent a cyst however there is no through transmission of sound. Suggest ultrasound-guided FNA for confirmation. BI-RAD Category: 4 Suspicious Abnormality-Biopsy Considered FOLLOW-UP: BIO Biopsy Recommended (A letter has been sent to the patient regarding results of the study.) Dictated by: Brandt Deleon MD 03/20/2021 18:36 Brandt Deleon MD in [place] 03/20/2021 18:36
== END ==
PROVIDERS: PCP Emergency Medicine; Visit Provider Nurse Practitioner Obstetrics & Gynecology
DX: R92.8 Other abnormal and inconclusive findings on diagnostic imaging of breast (principal)
CPT/HCPCS: 76641; 77061; 77065; G0279

== ENCOUNTER → 2021-04-17 09:46 | Outpatient (CLI) | payer MEDICAID, SELFPAY ==
--- NOTE | 2021-04-17 09:46 | US_ITS ---
PROCEDURE: US FNA BREAST CLINICAL INDICATION: Suspicious right breast nodule at 12 o'clock outer COMPARISON: MG MM DIG SCREENING MAMM BI W/CAD from 01/31/2021 US US BREAST RT COMPLETE from 03/13/2021 MG MM DIG MAMM DX UNILAT RT CAD from 04/17/2021 FINDINGS: Following obtaining informed consent and time-out procedure under aseptic conditions and local anesthesia with 1 percent buffered lidocaine, using sonographic guidance FNA was performed of the lobulated lesion at 12 o'clock with 21 gauge needle. Following this core biopsy was performed with 14 gauge needle. Three passes were made. Specimen was sent to cytology/pathology for analysis. Patient tolerated the procedure well without evidence of immediate complication. Pathology: Sclerosed fibroadenoma. No atypia. Pathologist however recommended excision for complete histologic evaluation. IMPRESSION: Uneventful and successful ultrasound-guided FNA and core biopsy of suspicious nodule at 12 o'clock of the right breast. Pathology:Sclerosed fibroadenoma. No atypia. Pathologist however recommended excision for complete histologic evaluation. Please see pathologist report for further description. Dictated by: Brandt Deleon MD 05/09/2021 13:48 Brandt Deleon MD in [place] 05/09/2021 13:48
--- NOTE | 2021-04-17 10:22 | MM_ITS ---
PROCEDURE INFORMATION: Exam: MG Right Diagnostic Breast Tomosynthesis Exam date and time: 04/17/2021 10:22 AM Age: 50 years old Clinical indication: Post fna TECHNIQUE: Imaging protocol: Right Diagnostic tomosynthesis and 2D mammography including computer-aided detection (CAD) when performed. Unilateral or bilateral exam. COMPARISON: 1. MG MM DIG MAMM DX UNILAT RT CAD 03/13/2021 1:39 PM 2. MG MM DIG SCREENING MAMM BI W/CAD 01/31/2021 8:24 AM FINDINGS: MAMMOGRAPHY: The breast tissue is heterogeneously dense, which may obscure small masses. The study is limited by motion artifact in the right craniocaudal projection IMPRESSION: Patient to return for a repeat right craniocaudal view at which time a full radiographic interpretation will be made ASSESSMENT: BI-RADS Category 0: Incomplete- Need Additional Imaging Evaluation and/or Prior Mammograms for Comparison
== END ==
PROVIDERS: PCP Emergency Medicine; Visit Provider Nurse Practitioner Obstetrics & Gynecology
DX: N63.10 Unspecified lump in the right breast, unspecified quadrant (principal)
CPT/HCPCS: 10005; 19083; 77061; 77063; 77065; 77067; G0279

== ENCOUNTER → 2021-05-13 08:35 | Outpatient (CLI) | payer MEDICAID, SELFPAY ==
--- NOTE | 2021-05-13 08:51 | ECG_ITS ---
APPROVED REPORT Exam: Resting ECG HR:76 bpm ECG Measurements Heart Rate 76 AXES OR 150 P 80 QRSd 58 QRS 88 QT 370 T 61 QTc 416 Conclusion Normal sinus rhythm Low voltage QRS Borderline ECG Electronically signed by : Toni Mccartney MD 05/16/2021 14:36:30
--- NOTE | 2021-05-13 08:56 | MM_ITS ---
PROCEDURE INFORMATION: Exam: MG Right Unilateral Digital Breast 3D Mammography; Diagnostic Exam date and time: 05/13/2021 8:56 AM Age: 50 years old Clinical indication: Repeat right cc view for motion . Recent right breast biopsy, for follow-up TECHNIQUE: Imaging protocol: Right Digital tomosynthesis and 2D mammography of the including computer-aided detection (CAD) when performed. Unilateral diagnostic exam. COMPARISON: 1. MG MM DIG MAMM DX UNILAT RT CAD 04/17/2021 10:48 AM 2. MG MM DIG MAMM DX UNILAT RT CAD 03/13/2021 1:39 PM FINDINGS: MAMMOGRAPHY: Repeat right craniocaudal view was performed and combined with the right MLO view performed 04/17/2021. The breast tissue is composed of scattered areas of fibroglandular density. There is no stellate mass, architectural distortion or suspicious microcalcifications to suggest malignancy. No residual mass is identified in the right 12 o'clock axis in the routine MLO view however in the craniocaudal tomographic view a persistent masses identified in the posterior third of the right central breast measuring 0.8 cm in dimension. This appears to be the site of recent biopsy. No skin thickening or axillary adenopathy. IMPRESSION: Residual 0.8 cm mass in the posterior third of the right central breast only well seen in the craniocaudal tomographic view. Correlation with cytology and histology are recommended. In the absence of suspicious clinical/histologic findings,annual bilateral mammographic screening is recommended unless otherwise clinically indicated. ASSESSMENT: BI-RADS Category 2: Benign
[2021-05-13 08:58] LABS: Basophils # 0.1 K/mm3 (0-0.2); Basophils % 0.7 % (0.1-2.0); Eosinophils # 0.2 K/mm3 (0.0-0.4); Eosinophils % 1.7 % (0.1-12.0); Hematocrit 44.6 % (37.0-47.0); Hemoglobin 14.2 g/dL (12.2-16.2); Lymphocytes # 3.1 K/mm3 (0.7-4.5); Lymphocytes % 31.9 % (10-50); Mean Corpuscular HGB Conc 31.7 g/dL (31.8-35.4); Mean Corpuscular Hemoglobin 32.8 pg (27.0-31.2); Mean Corpuscular Volume 103.2 fl (81-99); Mean Platelet Volume 7.5 fl (7.4-10.4); Monocytes # 0.5 K/mm3 (0.1-1.0); Monocytes % 5.1 % (1.7-9.3); Neutrophils # 5.9 K/mm3 (1.8-7.8); Neutrophils % 60.6 % (37.0-80.0); Platelet Count 398 K/mm3 (142-424); Red Blood Count 4.32 M/mm3 (4.20-5.40); Red Cell Distribution Width 12.8 % (11.5-17.5); White Blood Count 9.7 K/mm3 (4.8-10.8)
[2021-05-13 09:32] LABS: Anion Gap 10.8 mEq/L (5-15); Blood Urea Nitrogen 10 mg/dl (7-17); Calcium 9.4 mg/dl (8.4-10.2); Carbon Dioxide 26 mmol/L (22.0-30.0); Chloride 106 mmol/L (98-107); Estimated Glomerular Filt Rate 76 ml/min (>60); GFR (African American) 92 ML/MIN (>60); Glucose 96 mg/dl (74-100); Potassium 3.8 mmoL/L (3.5-5.1); Sodium 139 mmol/L (136-145)
== END ==
PROVIDERS: Visit Provider Surgery
DX: Z01.818 Encounter for other preprocedural examination (principal); Z11.52 Encounter for screening for COVID-19; N63.10 Unspecified lump in the right breast, unspecified quadrant
CPT/HCPCS: 36415; 80048; 85025; 93005; C9803; U0003; U0005

== ENCOUNTER 2021-05-15 06:06 | Day surgery (SDC) | payer MEDICAID, SELFPAY ==
[2021-05-12 11:23] VITALS: BMI 27.4
--- NOTE | 2021-05-15 | MM_ITS ---
FINAL REPORT CLINICAL HISTORY: . surg specimen FINDINGS: SPECIMEN RADIOGRAPH A single image is provided. The localization wire is entirely included within the specimen. IMPRESSION: Localization wire entirely included within the specimen. These findings were communicated to Tyra in the radiology department at 9:45 a.m. May 15, 2021. Reviewed, Interpreted and Dictated by Lance Zurita MD Transcribed by Jackson Pino Authenticated by Lance Zurita MD on 05/15/2021 09:50:09 AM [facility]
[2021-05-15 06:20] VITALS: BP 123/79; PULSE 82; RESP 18; TEMP 36.6; O2SAT 99
--- NOTE | 2021-05-15 07:11 | US_ITS ---
FINAL REPORT CLINICAL HISTORY: NEEDLE LOC RT BRESAT 1200 OUTER -- right breast nodule FINDINGS: Standard written informed consent was obtained. Limited sonographic assessment was used to localize the mildly lobulated hypoechoic nodule measuring nearly 1 cm at 12:00 within the right breast. This corresponded to a previously biopsied lesion. A 21-gauge 7 cm Kopan's needle was directed under sonographic guidance into the nodule. The hookwire was then deployed. Imaging documented the hookwire to be centered within the nodule with the tips extending just beyond the nodule. IMPRESSION: Technically successful wire localization of right breast nodule for excisional biopsy using sonographic guidance Authenticated by Ken Robles MD on 05/15/2021 10:18:31 PM [facility]
--- NOTE | 2021-05-15 07:13 | HMH.ANESCL ---
[facility] Anesthesia Checklist - Patient Identification Patient Identification: Arm Band, Verbal (Name & ) - Structural Data Admitted From: Home Planned Operative Procedure/s: Right Breast BX Consent for Planned Operative Procedure(s) Verified: Yes Verified Documents: Surgical Consent - NPO Status Verified Time NPO: 00:00 - Chart Verification Results Verified: CBC, BMP - Additional verifications Anesthesia Reactions: No Hx Blood Transfusions: No Blood Transfusion Reaction: No - Cardiovascular Assessment Heart Sounds: S1 & S2 - Airway Assessment C-Spine Mobility Assessed: Yes TMJ Mobility Assessed: Yes Dentition: Good Dentition - Neurological Assessment Level of Consciousness: Awake, Alert, Appropriate - Anesthesia Plan Anesthesia Risk discussed: Yes ASA Class: II Anesthesia Type: MAC [facility] History I have reviewed the patient's past medical history: Yes Medical History: Reports:: Hypertension Denies:: Cancer, Diabetes Mellitus Type 1, Diabetes Mellitus Type 2, Internal Pacemaker, MRSA, Seizures *Have you ever received a pneumonia vaccine?: No *Have you received a flu vaccine this season?: No (refused) Other Medical History: Reports: Other. Denies: Blood Transfusion Reaction Anesthesia experience/problems:: none Laterality Cases: Right: Carpal Tunnel Release Other Surgeries: Yes: , Other. No: Pacemaker Amputation: No Fractures: No - *Social History Last grade of school completed: Some college Smoking Status: Current every day smoker Tobacco Type: cigarettes # Packs/Day (cigarettes): 1 #Yrs smoked (if former smoker): 20 Alcohol Intake: current Alcohol Intake Frequency:: a few times a week Substance Use Type: denies use *Occupational Status:: employed Housing: house Household Members: spouse, children *Travel in the last 8 weeks: None Family Hx:: Cancer, Diabetes
--- NOTE | 2021-05-15 07:19 | SUR.PREOP ---
[id number] taken to [facility] via [facility]
--- NOTE | 2021-05-15 10:05 | P.OP_ITS ---
Date of procedure: 05/15/21 Pre-op Diagnosis:: Right breast lesion Post-op Diagnosis:: Same Procedure performed:: Needle-localized excisional biopsy of right breast lesion Surgeon:: Patricio Rodriguez MD Professor Of Management(s):: Viridiana Anesthesia: MAC Estimated blood loss (mL): 15 Operative findings:: Excision of lesion confirmed radiographically Operative note:: After informed consent was obtained the patient was taken to the radiology department where a localization needle was placed in position. Please see separate report for details. She was then transferred to the operating room and placed in the supine position. Monitored anesthesia care ensued. Her right breast was prepped and draped in a sterile fashion. After infiltration local anesthetic a slightly curvilinear incision was made just medial to the needle exit site. The subcutaneous tissue was dissected with electrocautery to the margin of the localization needle. The needle was then brought through the operative incision. As the tissue was elevated, a combination of electrocautery, sharp dissection, and blunt dissection was utilized to transect around the lesion. The lesion was excised in toto and passed off for pathologic evaluation after radiographic confirmation. The lesion was marked with non-dyed Vicryl suture for superficial margins (short superficial/long deep). The lesion was marked with dyed Vicryl suture for superior lateral margins (short superior/long lateral). Electrocautery was utilized to achieve hemostasis. Metallic clips were placed along the wound base and margin. Subcutaneous tissue was reapproximated with interrupted Vicryl suture. Skin was closed with 4-0 Monocryl in a subcuticular fashion. Steri-Strips were applied and the patient was transferred to recovery in stable condition. Condition: stable Disposition: PACU Complications:: No immediate
[2021-05-15 10:08] VITALS: BP 127/75; PULSE 91; RESP 18; TEMP 36.1; O2SAT 99
[2021-05-15 10:23] VITALS: BP 119/72; PULSE 76; RESP 18; TEMP 36.1; O2SAT 98
[2021-05-15 10:42] VITALS: BP 125/87; PULSE 72; RESP 18; TEMP 36.1; O2SAT 97
[2021-05-15 10:53] VITALS: BP 145/85; PULSE 74; RESP 18; TEMP 36.1; O2SAT 97
== END 2021-05-15 10:54 | disposition home or self-care (01) ==
LOC: OR 06:07
PROVIDERS: PCP Emergency Medicine; Visit Provider Surgery
PROC: (CPT 19125; principal; 2021-05-15 08:00)
DX: D48.61 Neoplasm of uncertain behavior of right breast (principal); I10 Essential (primary) hypertension; Z80.9 Family history of malignant neoplasm, unspecified; Z83.3 Family history of diabetes mellitus
CPT/HCPCS: 19125; 19285; 76098; 96374; J2405

== ENCOUNTER 2021-06-14 15:21 | Emergency (ER) | payer MEDICAID, SELFPAY ==
[2021-06-14 16:45] VITALS: BP 137/86; PULSE 82; RESP 19; TEMP 36.8; O2SAT 97; BMI 22.9
--- NOTE | 2021-06-14 17:09 | HMH.EDUTC ---
[facility] [place] Clinical Impression: Impacted cerumen of right ear Disposition: Home, Self-Care Condition on Discharge: Good Instructions: Cerumen Impaction Prescriptions: Neomycin/Polymyxin B/Hydrocort [Ackbjjnk-Owyoldmkm-An Ear Susp] 2 drops OT BID 7 Days #10 ml Prescription Printed Referrals: Sim Lakhani MD [Primary Care Provider] - Time of Disposition: 17:42 Medical Decision Making - Jonny Inquiry Pt receiving controlled substance: No Vital Signs: 06/14/21 16:45 Temperature 98.2 F Temperature Source Oral Pulse Rate [Right Brachial] 82 Respiratory Rate 19 Blood Pressure [Right Arm] 137/86 Blood Pressure Mean [Right Arm] 103 Blood Pressure Source [Right Arm] Automatic Cuff Blood Pressure Position [Right Arm] Sitting 02 Sat by Pulse Oximetry 97 Oxygen Delivery Method Room Air [facility] [place] - General Chief complaint: Urgent [facility] Center Stated complaint: Ear clogged up Time Seen by Provider: 06/14/21 17:10 Mode of Arrival: Ambulatory Source of Information: Patient Limitations: No Limitations Description of Symptoms (Recalled from Triage Doc. by RN): PATIENT C/O STOPPED UP EAR X 10 DAYS HEENT Symptoms (Recalled from RN notes): Yes Resp Symptoms (Recalled from RN notes): No Skin Symptoms (Recalled from RN notes): No MS Symptoms (Recalled from RN notes): No Functional Status (Recalled from RN notes): WNL - History of Present Illness Provider Complaint: 50 yr old female presnets for rt ear clogged. pt states for 10 days she has not been able to hear from that ear. - Related Data Home Medications Medication Instructions Recorded Confirmed Medroxyprogesterone Acetate 150 mg IM [id number] 05/12/21 05/23/21 Lisinopril/Hydrochlorothiazide See Rx Instructions .ROUTE .COMPLEX 05/15/21 05/23/21 [Lisinopril-Hctz 10-12.5 mg Tab] Previous Rx's Medication Instructions Recorded valacyclovir 1 gram tablet 1,000 mg PO BID PRN #60 tab 05/12/21 cephalexin 500 mg capsule 500 mg PO TID #21 cap 05/21/21 Neomycin/Polymyxin B/Hydrocort 2 drops OT BID 7 Days #10 ml 06/14/21 [Oyxmuevj-Awvpkkirk-Gf Ear Susp] Allergies Allergy/AdvReac Type Severity Reaction Status Date / Time No Known Allergies Allergy Verified 05/23/21 10:51 - Worker's Comp Is this a Worker's Comp case?: No [facility] History - Hepatitis A Screen Drug use history?: No High risk sexual behaviors?: No History of sexually transmitted infection?: No Currently employed?: No Childcare worker?: No Do you have indoor plumbing?: Yes Do you have electricity?: Yes Attestation statement:: This patient has been screened for Hepatitis A risk factors. I have reviewed the patient's past medical history: Yes Medical History: Reports:: Hypertension Denies:: Cancer, Diabetes Mellitus Type 1, Diabetes Mellitus Type 2, Internal Pacemaker, MRSA, Seizures Other Medical History: Reports: Other. Denies: Blood Transfusion Reaction Comment: Bulging disc in lower back L5-S1 Laterality Cases: Right: Carpal Tunnel Release Other Surgeries: Yes: Colonoscopy, , Other. No: Pacemaker Amputation: No Fractures: No Comment: Perianal Abscess. 1974-Urethral Dilation. 1989-P*C/S. 190-[place] Teeth Removed - Social History Smoking Status: Current every day smoker Tobacco Type: cigarettes # Packs/Day (cigarettes): 1 #Yrs smoked (if former smoker): 20 Alcohol Intake: current Alcohol Intake Frequency:: a few times a week Substance Use Type: denies use Occupational Status: employed Housing: house Household Members: spouse, children Family Hx:: Cancer, Diabetes Comment: 1990- TAB ROS Obtained: Yes Systems reviewed as appropriate & no additional complaints - Constitutional Constitutional: Reports system reviewed and no additional complaints, except as docu, Denies fever(s) - Eyes Eyes: Reports system reviewed and no additional complaints, except as docu, Denies dry eyes - ENT Ears, Nose, Mouth, and Throat: Reports system reviewed and n
[2021-06-14 18:07] VITALS: BP 137/86; PULSE 82; RESP 19; TEMP 36.8; O2SAT 97
== END 2021-06-14 18:10 | disposition home or self-care (01) ==
LOC: ER 15:26 → UTC 15:28
PROVIDERS: Emergency Provider Nurse Practitioner Family; PCP Emergency Medicine
DX: H61.21 Impacted cerumen, right ear (principal); F17.210 Nicotine dependence, cigarettes, uncomplicated
CPT/HCPCS: 99202; G0463

== ENCOUNTER → 2021-11-20 07:05 | Outpatient (CLI) | payer MEDICAID, SELFPAY ==
[2021-11-19 17:25] LABS: Basophils # 0.1 K/mm3 (0-0.2); Basophils % 0.8 % (0.1-2.0); Eosinophils # 0.1 K/mm3 (0.0-0.4); Eosinophils % 1.4 % (0.1-12.0); Hematocrit 43.7 % (37.0-47.0); Hemoglobin 13.7 g/dL (12.2-16.2); Lymphocytes # 2.3 K/mm3 (0.7-4.5); Lymphocytes % 31.6 % (10-50); Mean Corpuscular HGB Conc 31.4 g/dL (31.8-35.4); Mean Corpuscular Hemoglobin 33.5 pg (27.0-31.2); Mean Corpuscular Volume 106.6 fl (81-99); Mean Platelet Volume 8.6 fl (7.4-10.4); Monocytes # 0.5 K/mm3 (0.1-1.0); Neutrophils # 4.3 K/mm3 (1.8-7.8); Neutrophils % 59.2 % (37.0-80.0); Platelet Count 329 K/mm3 (142-424); Red Cell Distribution Width 13.5 % (11.5-17.5); White Blood Count 7.2 K/mm3 (4.8-10.8)
[2021-11-19 17:34] LABS: Alanine Aminotransferase 24 U/L (12-78); Albumin Level 3.9 g/dl (3.5-5.0); Albumin/Globulin Ratio 1.4 (1.1-1.8); Alkaline Phosphatase 58 U/L (38-126); Anion Gap 9.9 mEq/L (5-15); Aspartate Amino Transferase 26 U/L (14-36); Bilirubin,Total 0.9 mg/dl (0.2-1.3); Blood Urea Nitrogen 10 mg/dl (7-17); Calcium 9.3 mg/dl (8.4-10.2); Carbon Dioxide 24 mmol/L (22.0-30.0); Chloride 107 mmol/L (98-107); Chol/HDL Ratio 3.1 (1-3.5); Cholesterol 200 mg/dl (140-200); Estimated Glomerular Filt Rate 75 ml/min (>60); GFR (African American) 91 ML/MIN (>60); Globulin 2.7 g/dL (1.3-3.2); Glucose 96 mg/dl (74-100); HDL Cholesterol 64 mg/dl (40-60); Potassium 3.9 mmoL/L (3.5-5.1); Sodium 137 mmol/L (136-145); Total Protein,Serum 6.6 g/dl (6.3-8.2); Triglycerides 68 mg/dl (30-150); VLDL Cholesterol 14 mg/dL (0-40)
[2021-11-19 17:52] LABS: T4 (Thyroxine) 7.5 ug/dl (5.53-11.0)
[2021-11-19 17:54] LABS: 25-OH Vitamin D, Total 35.4 ng/mL (30-100)
[2021-11-19 18:05] LABS: Thyroid Stimulating Hormone 0.29 uIU/mL (0.465-4.68)
== END ==
PROVIDERS: PCP Nurse Practitioner Family; Visit Provider Nurse Practitioner Family
DX: I10 Essential (primary) hypertension (principal); R53.83 Other fatigue; E11.9 Type 2 diabetes mellitus without complications; E78.5 Hyperlipidemia, unspecified
CPT/HCPCS: 80053; 80061; 82306; 84436; 84443; 85025

== ENCOUNTER 2023-07-01 10:29 | Outpatient (CLI) | payer MEDICAID, SELFPAY ==
--- NOTE | 2023-07-01 10:54 | XR_ITS ---
FINAL REPORT CLINICAL HISTORY: R Hip pain COMPARISON: None FINDINGS: AP and frog leg views of the right hip were obtained. There is no prior exam for comparison. There is no acute fracture or dislocation. Joint space is preserved. Soft tissues are within normal limits. IMPRESSION: No acute osseous abnormality of the right hip. Reviewed, Interpreted and Dictated by Lance Zurita MD Transcribed by Mitzi Alvares Authenticated and [facility]
[2023-07-01 11:01] LABS: Basophils % 0.2 % (0.1-2.0); Eosinophils # 0.1 K/mm3 (0.0-0.4); Eosinophils % 0.7 % (0.1-12.0); Hematocrit 43.2 % (37.0-47.0); Hemoglobin 14.2 g/dL (12.2-16.2); Lymphocytes # 2.8 K/mm3 (0.7-4.5); Lymphocytes % 27.1 % (10-50); Mean Corpuscular HGB Conc 32.9 g/dL (31.8-35.4); Mean Corpuscular Hemoglobin 33.4 pg (27.0-31.2); Mean Corpuscular Volume 101.7 fl (81-99); Mean Platelet Volume 7.7 fl (7.4-10.4); Monocytes # 0.5 K/mm3 (0.1-1.0); Monocytes % 5.1 % (1.7-9.3); Neutrophils # 6.8 K/mm3 (1.8-7.8); Neutrophils % 66.8 % (37.0-80.0); Platelet Count 395 K/mm3 (142-424); Red Blood Count 4.25 M/mm3 (4.20-5.40); Red Cell Distribution Width 12.9 % (11.5-17.5); White Blood Count 10.2 K/mm3 (4.8-10.8)
[2023-07-01 11:35] LABS: Alanine Aminotransferase 36 U/L (12-78); Albumin Level 4.3 g/dl (3.5-5.0); Albumin/Globulin Ratio 1.7 (1.1-1.8); Alkaline Phosphatase 52 U/L (38-126); Anion Gap 14.2 mEq/L (5-15); Aspartate Amino Transferase 30 U/L (14-36); Blood Urea Nitrogen 14 mg/dl (7-17); Calcium 9.3 mg/dl (8.4-10.2); Carbon Dioxide 19 mmol/L (22.0-30.0); Chloride 105 mmol/L (98-107); Cholesterol 256 mg/dl (140-200); Estimated Glomerular Filt Rate 75 ml/min (>60); GFR (African American) 91 ML/MIN (>60); Globulin 2.5 g/dL (1.3-3.2); Glucose 103 mg/dl (74-100); Potassium 4.2 mmoL/L (3.5-5.1); Sodium 134 mmol/L (136-145); Total Protein,Serum 6.8 g/dl (6.3-8.2)
[2023-07-01 11:54] LABS: Iron 147 ug/dL (37-170)
[2023-07-01 12:06] LABS: Thyroid Stimulating Hormone 0.45 uIU/mL (0.465-4.68)
[2023-07-01 12:41] LABS: Vitamin B12 850 pg/mL (239-931)
[2023-07-01 12:50] LABS: Folate 7.78 ng/mL
[2023-07-11 17:32] LABS: 1,25 Dihydroxy Vitamin D 54 pg/mL (.); 1,25-Dihydroxy, Vitamin D-2 <10 pg/mL (.); 1,25-Dihydroxy, Vitamin D-3 54 pg/mL (.)
== END 2023-07-01 23:59 ==
LOC: LAB 10:31
PROVIDERS: PCP Nurse Practitioner Family; Visit Provider Nurse Practitioner Family
DX: Z01.419 Encounter for gynecological examination (general) (routine) without abnormal findings (principal); M25.551 Pain in right hip; M53.86 Other specified dorsopathies, lumbar region; Z72.0 Tobacco use; E66.9 Obesity, unspecified; Z68.29 Body mass index [BMI] 29.0-29.9, adult
CPT/HCPCS: 36415; 73502; 80053; 82465; 82607; 82652; 82746; 83540; 84443; 85025

== ENCOUNTER 2023-10-11 14:54 | Emergency (ER) | payer MEDICAID, SELFPAY ==
[2023-10-11 15:35] VITALS: BP 0/0; PULSE 0; RESP 0; TEMP -17.7; TEMP 0
== END 2023-10-11 15:36 | disposition left against medical advice (07) ==
LOC: UTC 14:58
PROVIDERS: Emergency Provider Nurse Practitioner Family; PCP Nurse Practitioner Family
DX: Z53.21 Procedure and treatment not carried out due to patient leaving prior to being seen by health care provider (principal)

== ENCOUNTER 2024-10-05 09:40 | Outpatient (CLI) | payer MEDICAID, SELFPAY ==
--- OUTSIDE RECORDS SUMMARY | 2024-10-03 11:45 | XMS_ITS | Encounter Summary ---
Author Organization [facility] Address [address] [place] [address] Care Team Providers Care Robotics Technician Name Role Phone Unavailable Primary Care Provider Unavailabl e Reason for Visit * Reason Comments Pain Encounter Details Date Type Department Care Team (Late st Contact Info) Description 10/03/2024 11:45 AM EDT Office Visit [facility] [address] [facility] [place], [place] [id number] Berlin Bailey APRN [address] [place] [address] Synovitis of left foot (Primary Dx); Left [...] No orders found for display Berlin Leo, ETL ARCHITECT [facility] Please note that this bookmobile librarian was created using voice recognition software. Any errors are unintentional and may be due to voice recognition bookmobile librarian. Parts of this note may have been created by a chart review, combined by taking my own patient history. The patient was physically seen and examined by myself, including a personal review of images, tests, and formation of the impression and plan. If questions occur please do not hesitate to call our office. documented in this encounter Plan of Treatment Scheduled Orders Name Type Priority Associated Diagnoses [...] LATERAL STANDING (10/03/2024 11:54 AM EDT) Narrative Adrianr, Audit - 10/03/2024 11:56 AM EDT Please see physician's note from office encounter for x-ray imaging result us Berlin JAIN DIAGNOSTIC IMAGING ORDERABL ES Final Result * XR ANKLE LEFT AP LATERAL AND OBLIQUE INCLUDING STANDING (10/03/2024 11:54 AM EDT) Narrative Avrilusediya, Audit - 10/03/2024 11:54 AM EDT Please see physician's note from office encounter for x-ray imaging result us Berlin JAIN DIAGNOSTIC IMAGING ORDERABL ES Final Result documented [...]
--- OUTSIDE RECORDS SUMMARY | 2024-10-03 12:00 | XMS_ITS | Encounter Summary ---
Author Organization [facility] Address [address] [place] [address] Care Team Providers Care Boat Repairer Name Role Phone Unavailable Primary Care Provider Unavailabl e Encounter Details Date Type Department Care Team (Late st Contact Info) Description 10/03/2024 12:00 PM EDT Ancillary Procedure [facility] [address] [place], [place] [phone] Berlin Bailey APRN [address] [place] [address] Left foot pain Social History Tobacco Use [...] as of this encounter Plan of Treatment Not on file documented as of this encounter Procedures Procedure Name Priority Date/Time Associated Diagnosis Comments XR FOOT LEFT AP AND LATERAL STANDING Routine 10/03/2024 11:54 AM EDT Left foot pain documented in this encounter Results * XR FOOT LEFT AP AND LATERAL STANDING (10/03/2024 11:54 AM EDT) Narrative Cathy Brito - 10/03/2024 11:56 AM EDT Please see physician's note from office encounter for x-ray imaging result us Berlin Leo WINDOWS SOFTWARE DEVELOPER IMG DIAGNOSTIC IMAGING ORDERABL ES Final Result documented in this encounter Visit Diagnoses Diagnosis Left foot pain Pain in limb documented in this encounter
--- OUTSIDE RECORDS SUMMARY | 2024-10-03 12:15 | XMS_ITS | Encounter Summary ---
Author Organization [facility] Address [address] [place] [address] Care Team Providers Care Website Optimization Strategist Name Role Phone Unavailable Primary Care Provider Unavailabl e Encounter Details Date Type Department Care Team (Late st Contact Info) Description 10/03/2024 12:15 PM EDT Ancillary Procedure [facility] [address] [place], [place] [phone] Berlin Bailey APRN [address] [place] [address] Left foot pain Social History Tobacco Use [...] Name Priority Date/Time Associated Diagnosis Comments XR ANKLE LEFT AP LATERAL AND OBLIQUE INCLUDING STANDING Routine 10/03/2024 11:54 AM EDT Left foot pain documented in this encounter Results * XR ANKLE LEFT AP LATERAL AND OBLIQUE INCLUDING STANDING (10/03/2024 11:54 AM EDT) Narrative Cathy Brito - 10/03/2024 11:54 AM EDT Please see physician's note from office encounter for x-ray imaging result us Berlin Leo RIBBON LAPPER TENDER IMG DIAGNOSTIC IMAGING ORDERABL ES Final Result documented in this encounter Visit Diagnoses Diagnosis Left foot pain Pain in limb documented in this encounter
--- OUTSIDE RECORDS SUMMARY | 2024-10-17 13:00 | XMS_ITS | Encounter Summary ---
Author Organization [facility] Address [address] [place] [address] Care Team Providers Care Food Adviser Name Role Phone Unavailable Primary Care Provider Unavailabl e Reason for Visit * Reason Comments Injury Encounter Details Date Type Department Care Team (Late st Contact Info) Description 2024 1:00 PM EDT Office Visit [facility] [address] [facility] [address] [place] [address] Sim Johns PA-C [address] [place] [address] Synovitis of left foot (Primary Dx) Social [...] Foot and Ankle Surgery and Sports Medicine orthoankle.Adiana HPI: Patient here for evaluation of her [...] documented in this encounter Plan of Treatment Not on file documented as of this encounter Procedures Procedure Name Priority Date/Time Associated Diagnosis Comments [place] ARTHROCNT ASPIR&/INJ SMALL JT/BURSAW/US REC RPRT Routine 2024 1:00 PM EDT Synovitis of left foot documented in this encounter Results * NC ARTHROCNT ASPIR&/INJ SMALL JT/BURSAW/US REC RPRT (2024 1:00 PM EDT) Narrative [facility] - 2024 1:00 PM EDT Lorraine Alicia RT 2024 2:07 PM Small Joint Injection/Arthrocentesis: [...] Diagnoses Diagnosis Synovitis of left foot- Primary documented in this encounter Administered Medications Inactive Administered Medications - up to 1 most recent administrations Medication Order MAR Action Action Date Dose Rate Site betamethasone acet-betamethasone sodium phos (CELESTONE) injection 6 mg 6 mg, Intra-articular, ONCE PRN, 1 dose, Starting on Wed10/17/24 at 1300, Until Wed10/17/24 at 1300, Dx: 1. Synovitis of left footIndications:Synovitis of left foot Given 2024 1:00 PM EDT 6 mg Toe BUPivacaine HCl (MARCAINE) 0.25 % (2.5 mg/mL) injection 1 mL 1 mL, Intra-articular, ONCE PRN, 1 dose, Starting on Wed10/17/24 at 1300, Until Wed10/17/24 at 1300, Dx: 1. Synovitis of left footIndications:Synovitis of left foot Given 2024 1:00 PM EDT 1 mL Toe documented in this encounter Historical Medications * This list may reflect changes made after this encounter. colchicine 0.6 mg Oral Tablet Take by mouth. added in this encounter
--- OUTSIDE RECORDS SUMMARY | 2024-11-10 14:52 | XMS_ITS | Clinical Summary ---
Author Organization [facility] Address [address] [place] [address] Phone Care Team Providers Care Personalized Living Manager Name Role Phone Unavailable Primary Care Provider [...] needed for Pain. 42 Capsule 10/03/2024 Active colchicine 0.6 mg Oral Tablet Take by mouth. Active Hospital, Clinic, or Other Facility Administered Medication Ordered Dose Route Frequency Start Date End Date Status betamethasone acet-betamethasone sodium phos (CELESTONE) injection 6 mgIndications:Synovitis of left foot 6 mg IAtc ONCE PRN 2024 2024 Ended BUPivacaine HCl (MARCAINE) 0.25 % (2.5 mg/mL) injection 1 mLIndications:Synovitis of left foot 1 mL IAtc ONCE PRN 2024 2024 Ended Active Problems Problem Noted Date Diagnosed Date Trigger thumb of left hand 03/09/2022 Overview (03/09/2022): Added automatically from request for surgery [id number] Carpal tunnel syndrome of left wrist 07/03/2014 Comments Yes Resolved Problems Problem Noted Date Diagnosed Date Resolved Date Trigger thumb of right hand 07/03/2014 03/23/2022 Encounters Date Type Department Care Team Description 2024 1:00 PM EDT [facility] [address] [address] Sim Johns PA-C Synovitis of left foot (Primary Dx) 10/03/2024 12:15 PM EDT Ancillary Procedure [facility] [address] [place] [address] Leo, [place], COMPUTER SUPPORT SPECIALIST Left foot pain 10/03/2024 12:00 PM EDT Ancillary Procedure [facility] [address] [place], [place] [address] [address] Leo, [place], COMPUTER SUPPORT SPECIALIST Left foot pain 10/03/2024 11:45 AM EDT Office Visit [facility] [address] [place], [place] [address] [address] Leo, [place], COMPUTER SUPPORT SPECIALIST Synovitis of left foot (Primary Dx); Left foot pain from Last 3 Months Surgical History Surgery Date Site/Laterality Comments SECTION x1 DENTAL SURGERY wisdom teeth CARPAL TUNNEL RELEASE 07/05/2014 Surgeon: Thomas Jeong MD; Location: [facility]; Service: Hand BREAST SURGERY Right cyst CARPAL TUNNEL RELEASE 03/26/2022 Hand/Wrist/Left left CARPAL TUNNEL RELEASE AND left thumb A-1 EMMY RELEASE; Surgeon: Thomas Jeong MD; Location: [facility]; Service: Hand Medical History Medical History [...] Sexual Orientation Not on file Obstetrics History Para Term AB IAB SAB Ectopic Multiple Livin g Live Births 1 Date Outcome GA Total Labor Labor/2nd/3rd Weight Sex Type Anes PTL Jigna A1 A5 Name Clin Current Last Filed Vital Signs Vital Sign Reading Time Taken Comments Blood Pressure 132/79 03/26/2022 8:27 AM EST Pulse 78 03/26/2022 8:27 AM EST Temperature 36.2 C (97.2 F) 03/26/2022 7:10 AM EST Respiratory Rate 16 03/26/2022 8:27 AM EST Oxygen Saturation 100% 03/26/2022 8:27 AM EST Inhaled Oxygen Concentration - - Weight 77.1 kg (170 lb) 2024 12:52 PM EDT Height 162.6 cm (5' 4 ) 2024 12:52 PM EDT Body Mass Index 29.18 2024 12:52 PM EDT Plan of Treatment Health Maintenance Due Date Last Done Comments [...] Zoster (1 of 2) 10/18/2019 COVID-19 Vaccine (1 - 2023-2 5 season) 2024 Influenza Vaccine (#1) 2025 RSV or 60+ (1 - 1-d ose 75+ series) 2044 Meningococcal B Vaccine Aged Out No l onger eligible based on patient's age to complete this topic Procedures Procedure Name Priority Date/Time Associated Diagnosis Comments [place] ARTHROCNT ASPIR&/INJ SMALL JT/BURSAW/US REC RPRT Routine 2024 1:00 PM EDT Synovitis of left foot XR FOOT LEFT AP AND LATERAL STANDING Routine 10/03/2024 11:54 AM EDT Left foot pain XR ANKLE LEFT AP LATERAL AND OBLIQUE INCLUDING STANDING Routine 10/03/2024 11:54 AM EDT Left foot pain from Last 3 Months Results * [place] ARTHROCNT ASPIR&/INJ SMALL JT/BURSAW/US REC RPRT (2024 [...] and draped in the usual sterile fashion. us Sim Johns PA-C PROCEDURE/MINOR SURGICAL OR DERABLES Final Result [facility] * XR FOOT LEFT AP AND LATERAL STANDING (10/03/2024 11:54 AM EDT) Narrative Avrilusediya, Audit - 10/03/2024 11:56 AM EDT Please [...] JAIN DIAGNOSTIC IMAGING ORDERABL ES Final Result from Last 3 Months [place] [id number] [place] [id number] [place] [id number] [place]
== END 2024-10-05 23:59 | disposition home or self-care (01) ==
LOC: LAB 11-10 14:50
PROVIDERS: PCP Nurse Practitioner Family; Visit Provider Nurse Practitioner Family
DX: Z00.00 Encounter for general adult medical examination without abnormal findings (principal)
CPT/HCPCS: 85651

== ENCOUNTER 2024-10-05 20:34 | Outpatient (CLI) | payer MEDICAID, SELFPAY ==
[2024-10-06 10:43] LABS: Erythrocyte Sedimentation Rate 9 mm/hr (0-30)
== END 2024-10-05 23:59 | disposition home or self-care (01) ==
LOC: LAB.DROPOF 20:35
PROVIDERS: PCP Nurse Practitioner Family; Visit Provider Nurse Practitioner Family
DX: M79.672 Pain in left foot (principal)
CPT/HCPCS: 85651

== ENCOUNTER 2024-10-11 11:17 | Outpatient (CLI) | payer MEDICAID, SELFPAY ==
[2024-10-11 19:57] LABS: Uric Acid 4.7 mg/dl (2.5-6.2)
[2024-10-11 20:06] LABS: C-Reactive Protein 0.7 mg/L (0-4)
== END 2024-10-11 23:59 | disposition home or self-care (01) ==
LOC: LAB.DROPOF 10-12 13:12
PROVIDERS: PCP Nurse Practitioner Family; Visit Provider Nurse Practitioner Family
DX: M79.672 Pain in left foot (principal)
CPT/HCPCS: 84550; 86140

== ENCOUNTER 2024-10-12 11:00 | Outpatient (CLI) | payer MEDICAID, SELFPAY ==
--- OUTSIDE RECORDS SUMMARY | 2024-10-03 11:45 | XMS_ITS | Encounter Summary ---
Author Organization [facility] Address [address] [place] [address] Care Team Providers Care Stock Selector Name Role Phone Unavailable Primary Care Provider Unavailabl e Reason for Visit * Reason Comments Pain Encounter Details Date Type Department Care Team (Late st Contact Info) Description 10/03/2024 11:45 AM EDT Office Visit [facility] [address] [place], [place] [id number] Berlin Bailey APRN [address] [place] [address] Synovitis of left foot (Primary Dx); Left foot pain Social History Tobacco Use Types Packs/Day Years Used Date Smoking Tobacco: Former Cigarettes 0.5 20 0 10/2001 - 10/2021 Smokeless Tobacco: Never Alcohol Use Standard Drinks/Week Comments Yes 0 (1 standard drink = 0.6 oz pur e alcohol) socially Comments Unknown Sex and Gender Information Value Date Recorded Sex Assigned at Not on file Legal Sex Female 10:39 AM EST Gender Identity Not on file Sexual Orientation Not on file documented as of this encounter Ordered Prescriptions Prescription Sig Dispense Quantity Refills Last Filled Start Date End Date indomethacin (INDOCIN) 50 mg Oral CapsuleIndications :Left foot pain,Synovitis of left foot Take 1 Capsule by mouth 3 times daily as needed for Pain. 42 Capsule 10/03/2024 documented in this encounter Progress Notes * Berlin Bailey APRN - 10/03/2024 11:45 AM EDT Images from the original note were not included. PATIENT NAME: Nishi Garcia DATE OF (age): 53 y.o. PROVIDER: Berlin Bailey APRN Date of Visit: 10/03/2024 Chief Complaint: Chief Complaint Patient presents with Left Foot - Pain History: This is a 53 y.o. year old female who presents for initial evaluation of left foot/ankle pain. The patient reports symptom onset that began approximately 4 to 5 weeks ago without any acute injury or trauma. She states that she began experiencing pain to the base of her great toe that remains consistent through today. She describes her pain as constant, dull, achy, burning and rates it horacio 5/10 at this time. She describes worsening symptoms with walking, weightbearing, standing and with palpation at the base of her toe. She describes minimal relief of symptoms with taking a previously prescribed prednisone taper and prescribed naproxen from her primary care provider. She denies anyright foot or ankle pain at this time. She denies any numbness and tingling in her bilateral lower extremities. She denies any fevers, chills or constitutional symptoms. She presents for initial orthopedic evaluation and treatment. Past Medical History: Reviewed registration form and medical history. Past Surgical History: Reviewed registration form and medical history. Family History: Reviewed registration form and medical history. Social History: Reviewed registration form and medical history. Review of Systems: Reviewed registration form and medical history. Physical Examination: VITAL SIGNS: Height Weight GENERAL: Well appearing. No acute distress. Appears stated age. normal body habitus. ORIENTATION: Awake. Alert. Oriented. HEENT: Normocephalic, atraumatic. Extraoccular muscles intact. Nares patent. RESPIRATORY: Non-labored breathing. Speaks comfortably in full sentences. CARDIAC: Warm and well-perfused. No obvious peripheral edema. SKIN: No obvious lesions in exposed areas. NEUROLOGIC: No focal neurologic deficits are noted. Light touch sensation grossly intact. Balance appears intact. PSYCHIATRIC: Normal mood and affect. Cooperative. Gait: Walks with a antalgic gait. ORTHO EXAM. Left foot/ankle: No swelling, effusion, ecchymosis, masses or deformities. No plantar ecchymosis. Non tender with palpation of the ATFL, CFL, PTFL, lateral malleolus, medial deltoid ligament, and medial malleolus. Tenderness to palpation at dorsal and medial aspects of the first MTP joint. No other metatarsal or phalangeal tenderness noted. Achilles tendon is palpably intact and non tender to palpation. Negative calcaneal squeeze. Full ankle ROM. No pain with resisted dorsiflexion, plantar flexion, eversion and inversion. Negative anterior drawer test. Negative Ferreira test. Negative Homans' sign. Ankle strength is 5/5. Sensation is intact. ADDITIONAL WORKUP / IMAGING The following imaging and/or labs were personally read by myself and discussed in detail with the patient today. X-ray left foot/ankle, 5 views: Trace degenerative changes noted to the first MTP joint. No other acute bony or osseous abnormality deformities noted. ASSESSMENT: Synovitis of the first MTP joint of the foot, left Clinical concern for gout vs other inflammatory etiology of the foot, left PLAN: I discussed the case with the patient in the office today. I discussed treatment options. I did my best to answer all questions. The patient was in agreement with the treatment plan. Uric acid, CRP, sed rate and CBC with differential ordered to assist with further diagnosis, evaluation, management and treatment of above diagnoses. Indomethacin 50 mg 3 times daily as needed prescribed for inflammation and pain in left foot and great toe. Tylenol over the counter, as needed, as directed on the bottle, not to exceed 3000 mg per day. Rest and Elevate as much as possible. Ice 20 min on 60 min off, 3-4 times per day I will have the patient follow-up with one of our orthopedic foot and ankle specialists in approximately 2 weeks for further evaluation, management and treatment. Diagnoses and all orders for this visit: Synovitis of left foot - XR FOOT LEFT AP AND LATERAL STANDING; Future - XR ANKLE LEFT AP LATERAL AND OBLIQUE INCLUDING STANDING; Future - URIC ACID; Future - C-REACTIVE PROTEIN; Future - SEDIMENTATION RATE AUTOMATED; Future - CBC WITH DIFF; Future - indomethacin (INDOCIN) 50 mg Oral Capsule; Take 1 Capsule by mouth 3 times daily as needed for Pain. Dispense: 42 Capsule; Refill: 0 Left foot pain - XR FOOT LEFT AP AND LATERAL STANDING; Future - XR ANKLE LEFT AP LATERAL AND OBLIQUE INCLUDING STANDING; Future - URIC ACID; Future - C-REACTIVE PROTEIN; Future - SEDIMENTATION RATE AUTOMATED; Future - CBC WITH DIFF; Future - indomethacin (INDOCIN) 50 mg Oral Capsule; Take 1 Capsule by mouth 3 times daily as needed for Pain. Dispense: 42 Capsule; Refill: 0 DME Summary No orders found for display Berlin Leo, VEHICLE MAINTENANCE TECHNICIAN [facility] Please note that this sanitation lead was created using voice recognition software. Any errors are unintentional and may be due to voice recognition sanitation lead. Parts of this note may have been created by a chart review, combined by taking my own patient history. The patient was physically seen and examined by myself, including a personal review of images, tests, and formation of the impression and plan. If questions occur please do not hesitate to call our office. documented in this encounter Plan of Treatment Upcoming Encounters Date Type Department Care Team (Late st Contact Info) Description 2024 1:00 PM EDT Office Visit [facility] [address] [facility] [address] [place] [address] Sim Johns PA-C [address] [place] [address] Scheduled Orders Name Type Priority Associated Diagnoses Orde r Schedule URIC ACID Lab Routine Left foot pain Synovitis Of Left Foot 1 Occurrences starting 10/03/2024 until 10/03/2025 C-REACTIVE PROTEIN Lab Routine Left foot pain Synovitis Of Left Foot 1 Occurrences starting 10/03/2024 until 10/03/2025 SEDIMENTATION RATE AUTOMATED Lab Routine Left foot pain Synovitis Of Left Foot 1 Occurrences starting 10/03/2024 until 10/03/2025 CBC WITH DIFF Lab Routine Left foot pain Synovitis Of Left Foot 1 Occurrences starting 10/03/2024 until 10/03/2025 documented as of this encounter Results * XR FOOT LEFT AP AND LATERAL STANDING (10/03/2024 11:54 AM EDT) Narrative Alisha, Audit - 10/03/2024 11:56 AM EDT Please see physician's note from office encounter for x-ray imaging result Berlin Bailey APRN IMG DIAGNOSTIC IMAGING ORDERABL ES Final Result * XR ANKLE LEFT AP LATERAL AND OBLIQUE INCLUDING STANDING (10/03/2024 11:54 AM EDT) Narrative Alisha, Audit - 10/03/2024 11:54 AM EDT Please see physician's note from office encounter for x-ray imaging result Berlinsunshine Bailey APRN IMG DIAGNOSTIC IMAGING ORDERABL ES Final Result documented in this encounter Visit Diagnoses Diagnosis Synovitis of left foot- Primary Left foot pain Pain in limb Left foot pain Pain in limb Left foot pain Pain in limb documented in this encounter Historical Medications * This list may reflect changes made after this encounter. Medication Sig Dispense Quantity Refills Last Filled Start D ate End Date predniSONE (DELTASONE) 20 mg Oral Tablet 09/21/2024 naproxen (NAPROSYN) 500 mg Oral Tablet 09/21/2024 added in this encounter
--- OUTSIDE RECORDS SUMMARY | 2024-10-03 12:00 | XMS_ITS | Encounter Summary ---
Author Organization [facility] Address [address] [place] [address] Care Team Providers Care Glass Curvature Gauger Name Role Phone Unavailable Primary Care Provider Unavailabl e Encounter Details Date Type Department Care Team (Late st Contact Info) Description 10/03/2024 12:00 PM EDT Ancillary Procedure [facility] [address] [place] [id number] Berlin Bailey APRN [address] [phone] Left foot pain Social History Tobacco Use [...] on file documented as of this encounter Plan of Treatment Upcoming Encounters Date Type Department Care Team (Late st Contact Info) Description 2024 1:00 PM EDT Office Visit [facility] [address] [place] [address] Sim Johns PA-C [address] [place] [address] documented as of this encounter Procedures Procedure Name Priority Date/Time Associated Diagnosis Comments XR FOOT LEFT AP AND LATERAL STANDING Routine 10/03/2024 11:54 AM EDT Left foot pain documented in this encounter Results * XR FOOT LEFT AP AND LATERAL STANDING (10/03/2024 11:54 AM EDT) Narrative Genericuser, Audit - 10/03/2024 11:56 AM EDT Please see physician's note from office encounter for x-ray imaging result Berlin Bailey APRN IMG DIAGNOSTIC IMAGING ORDERABL ES Final Result documented in this encounter Visit Diagnoses Diagnosis Left foot pain Pain in limb documented in this encounter
--- OUTSIDE RECORDS SUMMARY | 2024-10-03 12:15 | XMS_ITS | Encounter Summary ---
Author Organization [facility] Address [address] [place] [address] Care Team Providers Care Soap Worker Name Role Phone Unavailable Primary Care Provider Unavailabl e Encounter Details Date Type Department Care Team (Late st Contact Info) Description 10/03/2024 12:15 PM EDT [facility] [address] [address] Berlin Bailey APRN [address] [place] [phone] Left foot pain Social History Tobacco Use [...] Office Visit [facility] [address] [place] [address] Sim Johns PA-C [address] [place] [address] documented as of this encounter Procedures Procedure Name Priority Date/Time Associated Diagnosis Comments XR ANKLE LEFT AP LATERAL AND OBLIQUE INCLUDING STANDING Routine 10/03/2024 11:54 AM EDT Left foot pain documented in this encounter Results * XR ANKLE LEFT AP LATERAL AND OBLIQUE INCLUDING STANDING (10/03/2024 11:54 AM EDT) Narrative Genericuser, Cathy - 10/03/2024 11:54 AM EDT Please see physician's note from office encounter for x-ray imaging result Berlin Bailey APRN IMG DIAGNOSTIC IMAGING ORDERABL ES Final Result documented in this encounter Visit Diagnoses Diagnosis Left foot pain Pain in limb documented in this encounter
[2024-10-12 18:47] LABS: Basophils % 0.9 % (0.1-2.0); Eosinophils # 0.1 Kmm3 (0.0-0.4); Eosinophils % 2.8 % (0.1-12.0); Hemoglobin 13.7 g/dL (12.2-16.2); Immature Granulocytes # 0 10^3uL; Immature Granulocytes % 0 %; Lymphocytes # 1.5 K/mm3 (0.7-4.5); Lymphocytes % 34.3 % (10-50); Mean Corpuscular HGB Conc 32.6 g/dL (31.8-35.4); Mean Corpuscular Hemoglobin 31.7 pg (27.0-31.2); Mean Corpuscular Volume 97.2 fl (81-99); Mean Platelet Volume 10.7 fl (7.4-10.4); Monocytes # 0.4 K/mm3 (0.1-1.0); Monocytes % 10.2 % (1.7-9.3); Neutrophils # 2.2 K/mm3 (1.8-7.8); Neutrophils % 51.8 % (37.0-80.0); Nucleated Red Blood Cells # 0 10^3/uL; Nucleated Red Blood Cells % 0 %; Platelet Count 255 K/mm3 (142-424); Red Blood Count 4.32 M/mm3 (4.20-5.40); Red Cell Distribution Width 12.7 % (11.5-17.5); Red Cell Distribution Width-SD 45.3 fL; White Blood Count 4.3 K/mm3 (4.8-10.8)
[2024-10-12 19:19] LABS: Alanine Aminotransferase 57 U/L (12-78); Albumin Level 4.5 g/dl (3.5-5.0); Albumin/Globulin Ratio 1.9 (1.1-1.8); Alkaline Phosphatase 88 U/L (38-126); Anion Gap 9.7 mEq/L (5-15); Aspartate Amino Transferase 38 U/L (14-36); Bilirubin,Total 1.5 mg/dl (0.2-1.3); Blood Urea Nitrogen 11 mg/dl (7-17); Calcium 9.6 mg/dl (8.4-10.2); Carbon Dioxide 26 mmol/L (22.0-30.0); Chloride 105 mmol/L (98-107); Chol/HDL Ratio 3.1 (1-3.5); Cholesterol 255 mg/dl (140-200); Estimated Glomerular Filt Rate 87 ml/min (>60); GFR (African American) 106 ML/MIN (>60); Globulin 2.4 g/dL (1.3-3.2); Glucose 128 mg/dl (74-100); HDL Cholesterol 81 mg/dl (40-60); Potassium 4.7 mmoL/L (3.5-5.1); Sodium 136 mmol/L (136-145); Total Protein,Serum 6.9 g/dl (6.3-8.2); Triglycerides 108 mg/dl (30-150); VLDL Cholesterol 22 mg/dL (0-40)
[2024-10-12 19:31] LABS: Direct LDL Cholesterol 138.75 mg/dL (100-129)
[2024-10-12 19:36] LABS: 25-OH Vitamin D, Total 30.9 ng/mL (30-100)
[2024-10-12 19:37] LABS: T4 (Thyroxine) 5.9 ug/dl (5.53-11.0)
[2024-10-12 19:51] LABS: Thyroid Stimulating Hormone 0.17 uIU/mL (0.465-4.68)
--- OUTSIDE RECORDS SUMMARY | 2024-10-13 14:04 | XMS_ITS | Clinical Summary ---
Author Organization [facility] Address [address] [place] [address] Phone Care Team Providers Care Project Consultant Name Role Phone Unavailable Primary Care Provider Unavailabl e Allergies No known active allergies Medications lisinopriL-hydr ochlorothiazide (PRINZIDE;ZESTO RETIC) 10-12.5 mg Oral Tablet Take 1 Tablet by mouth daily. Active naproxen (NAPROSYN) 500 mg Oral Tablet 09/21/2024 Acti ve predniSONE (DELTASONE) 20 mg Oral Tablet 09/21/2024 Acti ve indomethacin (INDOCIN) 50 mg Oral CapsuleIndicati ons:Left foot pain,Synovitis of left foot Take 1 Capsule by mouth 3 times daily as needed for Pain. 42 Capsule 10/03/2024 Active Active Problems Problem Noted Date Diagnosed Date Trigger thumb of left hand 03/09/2022 Overview (03/09/2022): Added automatically from request for surgery [id number] Carpal tunnel syndrome of left wrist 07/03/2014 Resolved Problems Problem Noted Date Diagnosed Date Resolved Date Trigger thumb of right hand 07/03/2014 03/23/2022 Encounters Date Type Department Care Team Description 10/03/2024 12:15 PM EDT Ancillary Procedure [facility] [address] [place] [address] [place] Bailey APRN Left foot pain 10/03/2024 12:00 PM EDT Ancillary Procedure [facility] [address] [place] [address] [place] Bailey APRN Left foot pain 10/03/2024 11:45 AM EDT Office Visit [facility] [address] [place] [address] [place] Bailey APRN Synovitis of left foot (Primary Dx); Left foot pain from Last 3 Months Surgical History Surgery Date Site/Laterality Comments SECTION x1 DENTAL SURGERY wisdom teeth CARPAL TUNNEL RELEASE 07/05/2014 Surgeon: Thomas Jeong MD; Location: [facility]; Service: Hand BREAST SURGERY Right cyst CARPAL TUNNEL RELEASE 03/26/2022 Hand/Wrist/Left left CARPAL TUNNEL RELEASE AND left thumb A-1 EMMY RELEASE; Surgeon: Thomas Jeong MD; Location: [facility]; Service: Hand Medical History Medical History Date Comments Hypertension Family History Medical History Relation Name Comments Anesth Problems Neg Hx Social History Tobacco Use Types Packs/Day Years Used Date Smoking Tobacco: Former Cigarettes 0.5 20 0 10/2001 - 10/2021 Smokeless Tobacco: Never Tobacco Cessation:Counseling Given: Not Answered Alcohol Use Standard Drinks/Week Comments Yes 0 (1 standard drink = 0.6 oz pur e alcohol) socially Comments Unknown Sex and Gender Information Value Date Recorded Sex Assigned at Not on file Legal Sex Female 10:39 AM EST Gender Identity Not on file Sexual Orientation Not on file Obstetrics History Last Filed Vital Signs Vital Sign Reading Time Taken Comments Blood Pressure 132/79 03/26/2022 8:27 AM EST Pulse 78 03/26/2022 8:27 AM EST Temperature 36.2 C (97.2 F) 03/26/2022 7:10 AM EST Respiratory Rate 16 03/26/2022 8:27 AM EST Oxygen Saturation 100% 03/26/2022 8:27 AM EST Inhaled Oxygen Concentration - - Weight 72.6 kg (160 lb) 03/26/2022 7:10 AM EST Height 167.6 cm (5' 6 ) 03/26/2022 7:10 AM EST Body Mass Index 25.82 03/26/2022 7:10 AM EST Plan of Treatment Upcoming Encounters Date Type Department Care Team (Late st Contact Info) Description 2024 1:00 PM EDT Office Visit [facility] [address] [place] [address] Sim Johns PA-C [address] [place] [address] Health Maintenance Due Date Last Done Comments Annual Wellness Exam 1972 DTaP/TDaP/Td (1 - Tdap) 1988 Hepatitis B Vaccine (1 of 3 - 19+ 3-dose series) 1988 Cervical Cancer Screening 1990 Pap Smear 1990 HPV/Pap Cotest 10/18/1999 Breast Cancer Screening 2009 Cologuard 2014 Colon Cancer Screening 2014 Colonoscopy 2014 FIT 2014 Sigmoidoscopy 2014 Virtual Colonography 2014 Pneumococcal Vaccine 50+ (1 of 1 - PCV) 10/18/2019 Zoster (1 of 2) 10/18/2019 COVID-19 Vaccine ( - 2023-2 5 season) 2024 Influenza Vaccine (Season Ended) 2025 Meningococcal B Vaccine Aged Out No l onger eligible based on patient's age to complete this topic Procedures Procedure Name Priority Date/Time Associated Diagnosis Comments XR FOOT LEFT AP AND LATERAL STANDING Routine 10/03/2024 11:54 AM EDT Left foot pain XR ANKLE LEFT AP LATERAL AND OBLIQUE INCLUDING STANDING Routine 10/03/2024 11:54 AM EDT Left foot pain from Last 3 Months Results * XR FOOT LEFT AP AND LATERAL STANDING (10/03/2024 11:54 AM EDT) Narrative Cathy Brito - 10/03/2024 11:56 AM EDT Please see physician's note from office encounter for x-ray imaging result [place] Bailey APRN IMG DIAGNOSTIC IMAGING ORDERABL ES Final Result * XR ANKLE LEFT AP LATERAL AND OBLIQUE INCLUDING STANDING (10/03/2024 11:54 AM EDT) Narrative Alisha Cathy - 10/03/2024 11:54 AM EDT Please see physician's note from office encounter for x-ray imaging result [place] Bailey QUALITY CONTROL TECHNICIAN IMG DIAGNOSTIC IMAGING ORDERABL ES Final Result from Last 3 Months Insurance [employer] [address] [employer] OF [address] [place] [id number] MDR
== END 2024-10-12 23:59 | disposition home or self-care (01) ==
LOC: LAB.DROPOF 10-13 14:02
PROVIDERS: PCP Nurse Practitioner Family; Visit Provider Nurse Practitioner Family
DX: I95.9 Hypotension, unspecified (principal)
CPT/HCPCS: 80053; 80061; 82306; 84436; 84443; 85025

== ENCOUNTER 2024-12-05 13:05 | Outpatient (CLI) | payer MEDICAID, SELFPAY ==
--- OUTSIDE RECORDS SUMMARY | 2024-10-17 13:00 | XMS_ITS | Encounter Summary ---
Author Organization [facility] Address [address] [place] [address] Care Team Providers Care Welder Production Line Arc Name Role Phone Unavailable Primary Care Provider Unavailabl e Reason for Visit * Reason Comments Injury Encounter Details Date Type Department Care Team (Late st Contact Info) Description 2024 1:00 PM EDT Office Visit [facility] [address] [facility] [address] [place] [address] Sim Johns PA-C [address] [place] [address] Synovitis of left foot (Primary Dx) Social History Tobacco Use Types Packs/Day Years Used Date Smoking Tobacco: Former Cigarettes 0.5 20 0 10/2001 - 10/2021 Smokeless Tobacco: Never Tobacco Cessation:Counseling Given: Not Answered Alcohol Use Standard Drinks/Week Comments Yes 0 (1 standard drink = 0.6 oz pur e alcohol) socially Comments Yes Sex and Gender Information Value Date Recorded Sex Assigned at Not on file Legal Sex Female 10:39 AM EST Gender Identity Not on file Sexual Orientation Not on file documented as of this encounter Last Filed Vital Signs Vital Sign Reading Time Taken Comments Blood Pressure - - Pulse - - Temperature - - Respiratory Rate - - Oxygen Saturation - - Inhaled Oxygen Concentration - - Weight 77.1 kg (170 lb) 2024 12:52 PM EDT Height 162.6 cm (5' 4 ) 2024 12:52 PM EDT Body Mass Index 29.18 2024 12:52 PM EDT documented in this encounter Progress Notes * Lorraine Alicia RT - 2024 1:00 PM EDTAssociated Order(s): Small Joint Injection/Arthrocentesis: L great MTP Small Joint Injection/Arthrocentesis: L great MTP on 2024 1:00 PM Indications: pain Details: 25 G needle, ultrasound-guided dorsal approach Medications: 1 mL BUPivacaine HCl 0.25 % (2.5 mg/mL); 6 mg betamethasone acet- betamethasone sodium phos 6 mg/mL Procedure, treatment alternatives, risks and benefits explained, specific risks discussed. Consent was given by the patient. Patient was prepped and draped in the usual sterile fashion. * Sim Johns PA-C - 2024 1:00 PM EDT Images from the original note were not included. Sim Johns PA-C Foot and Ankle Surgery and Sports Medicine orthoankle.[employer] HPI: Patient here for evaluation of her left foot. She complains of pain localized to her first MTPjoint. It began 1 to 2 months ago without any injury or trauma. States it began gradual in worsening. Denies history of gout. She was seen by her PCP who had her on a prednisone taper as well as naproxen. She followed up with [place] Bailey in our walk-in clinic. She was started on Indocin with concern of gout versus inflammatory arthropathy. She reports mild improvement in her symptoms and continues to complain of pain primary localized to her first MTP joint. 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 Physical Exam: Left foot shows mild swelling first MTP joint. No warmth or erythema. Tender first MTP joint. Imaging: Previous left foot and ankle x-rays were reviewed. They show dorsal spurring first MTP joint. No displaced fractures. Impression: Left first MP joint mild osteoarthritis, synovitis Lower concern of gout given clinical presentation Plan: Treatment was discussed with the patient. Recommend supportive shoe wear. Discussed diagnostic therapeutic ultrasound-guided corticosteroid injection. She would like to proceed with it today. Discussed postinjection flare. Will have patient follow-up with Dr. Simpson in 3 to 4 weeks for reevaluation. Ultrasound Guided First metatarsophalangeal joint foot injection procedure: Procedure: Informed consent obtained for left foot first metatarsophalangeal joint. Diagnostic MSK ultrasound was used to identify the first metatarsophalangeal joint. Under ultrasound guidance, sterile technique procedure was used to inject 1 cc bupivacaine and 1 cc Celestone (betamethasone) into the that first MTP joint. Instructed for relative rest for 24 hours, ice and rest for any post-injection flare. Contact office for persistent pain, redness, or swelling. DME: DME Summary No orders found for display Sim Johns PA-C documented in this encounter Plan of Treatment Upcoming Encounters Date Type Department Care Team (Late st Contact Info) Description 12/27/2024 10:20 AM EDT Hospital Encounter [facility] [address] [place] [address] [place] [address] [place] [address] 12/27/2024 10:20 AM EDT - 12/27/2024 10:50 AM EDT Surgery [facility] [address] [place] [address] [place] [address] [place] [address] FIRST METATARSAL PHALANGEAL OR HALLUX CHEILECTOMY 01/11/2025 9:00 AM EDT Office Visit [facility] [address] [address] Sim Johns PA-C [address] [place] [address] Scheduled Procedures Name Priority Associated Diagnoses Date/Ti me FIRST METATARSAL PHALANGEAL OR HALLUX CHEILECTOMY Synovitis of toe Arthritis of first metatarsophalangeal (MTP) joint of left foot 12/27/2024 10:20 AM EDT documented as of this encounter Procedures Procedure Name Priority Date/Time Associated Diagnosis Comments VA ARTHROCNT ASPIR&/INJ SMALL JT/BURSAW/US REC RPRT Routine 2024 1:00 PM EDT Synovitis of left foot documented in this encounter Results * VA ARTHROCNT ASPIR&/INJ SMALL JT/BURSAW/US REC RPRT (2024 1:00 PM EDT) Narrative [facility] - 2024 1:00 PM EDT Lorraine Alicia, RT 2024 2:07 PM Small Joint Injection/Arthrocentesis: L great MTP on 2024 1:00 PM Indications: pain Details: 25 G needle, ultrasound-guided dorsal approach Medications: 1 mL BUPivacaine HCl 0.25 % (2.5 mg/mL); 6 mg betamethasone acet-betamethasone sodium phos 6 mg/mL Procedure, treatment alternatives, risks and benefits explained, specific risks discussed. Consent was given by the patient. Patient was prepped and draped in the usual sterile fashion. Sim Johns PA-C PROCEDURE/MINOR SURGICAL OR DERABLES Final Result [facility] documented in this encounter Visit Diagnoses Diagnosis Synovitis of left foot- Primary Synovitis of toe Tenosynovitis of foot and ankle Arthritis of first metatarsophalangeal (MTP) joint of left foot documented in this encounter Administered Medications Inactive Administered Medications - up to 1 most recent administrations Medication Order MAR Action Action Date Dose Rate Site betamethasone acet-betamethasone sodium phos (CELESTONE) injection 6 mg 6 mg, Intra-articular, ONCE PRN, 1 dose, Starting on Wed10/17/24 at 1300, Until Tu10/17/24 at 1300, Dx: 1. Synovitis of left footIndications:Synovitis of left foot Given 2024 1:00 PM EDT 6 mg Toe BUPivacaine HCl (MARCAINE) 0.25 % (2.5 mg/mL) injection 1 mL 1 mL, Intra-articular, ONCE PRN, 1 dose, Starting on Wed10/17/24 at 1300, Until Tu10/17/24 at 1300, Dx: 1. Synovitis of left footIndications:Synovitis of left foot Given 2024 1:00 PM EDT 1 mL Toe documented in this encounter Historical Medications * This list may reflect changes made after this encounter. colchicine 0.6 mg Oral Tablet Take by mouth. added in this encounter
--- OUTSIDE RECORDS SUMMARY | 2024-11-27 08:45 | XMS_ITS | Encounter Summary ---
Author Organization [facility] Address [address] [place] [address] Care Team Providers Care Creative Lead Name Role Phone Unavailable Primary Care Provider Unavailabl e Reason for Referral * Surgical (Routine) - Pending Review Specialty Diagnoses / Procedures Referred By Gurdeep martinez Referred To Contact Diagnoses Synovitis of toe Arthritis of first metatarsophalangeal (MTP) joint of left foot Procedures AMB OC SURGERY COMMUNICATION ORDER Israel Simpson MD [address] [address] [address] Phone: tel: fax: Referral ID Status Reason Start Date Expiration Date V isits Requested Visits Authorized [id number] Pending Review 11/27/2024 11/27/2025 1 1 Reason for Visit * Reason Comments Follow-up Encounter Details Date Type Department Care Team (Late st Contact Info) Description 11/27/2024 8:45 AM EDT [facility] [address] [place] [phone] Israel Simpson MD [address] [place] [address] Synovitis of toe (Primary Dx); Arthritis of first metatarsophalangeal (MTP) joint of left foot Social History Tobacco Use Types Packs/Day Years [...] on file documented as of this encounter Progress Notes * Israel Simpson MD - 11/27/2024 8:45 AM EDT Images from the original note were not included. Kamran Simpson MD Foot and Ankle Surgery and Sports Medicine [facility] Subjective: 11/27/2024 Nishi Garcia 54 y.o. female. HPI: History of Present Illness The patient is here for a follow-up of nontraumatic left foot pain. She was initially seen by her primary care physician for pain around the big toe, which was treatedwith a steroid medication taper. Later, she was seen in the walk-in clinic and then saw Dr. Simpson, who performed a cortisone injection into the first MTP joint about 6 weeks ago. She sought medical attention from her primary care physician last Wednesday due to persistent aching and throbbing pain in her left big toe throughout night. The pain was described as if a knife was lodged in the joint. The cortisone injection administered 6 weeks ago provided temporary relief, but the throbbing sensation returned after a day or two. Although the pain subsided for a period, it never completely disappeared and has recently flared up again. Her primary care physician prescribed another round ofsteroids, which offered some relief but did not eliminate the pain. She reports no similar pain in her right foot. Her footwear typically includes flip- flops or she goes barefoot, but she notes no difference in pain levels regardless of whether she wears shoes or not. She also received Toradol and a steroid injection in her hip from her primary care physician. She first visited this clinic on 10/03/2024, after experiencing symptoms for approximately 6 weeks. SOCIAL HISTORY Occupations: Not currently working Objective: PHYSICAL EXAMINATION: General: Well appearing with appropriate affect. Neuro: Alert and oriented to person, place, and time. Normal neurosensory response to touch. Musculoskeletal: Physical Exam - Musculoskeletal: - Left foot first MTP joint: - Palpable dorsal osteophyte with swelling and tenderness - Pain at dorsiflexion to 25 degrees and plantar flexion to 20 degrees - No significant pain in mid range of motion - No malalignment of the rest of the midfoot or forefoot - No varus or valgus Radiology/Laboratory Results: Results - Imaging: - X-rays of the left foot (3 views): 10/03/2024 - Noticeable dorsal osteophyte off the first MTP joint with slight loose body - Sclerosis at the MTP joint, but maintenance of joint space - Questionable subarticular cyst in the first metatarsal head - X-rays of the left ankle (2 views): 10/03/2024 - Noticeable dorsal osteophyte off the first MTP joint with slight loose body - Sclerosis at the MTP joint, but maintenance of joint space - Questionable subarticular cyst in the first metatarsal head Assessment and Plan: Assessment & Plan - Left foot first MTP synovitis - First MTP arthritis Treatment plan: Persistent pain in the left big toe has been ongoing for several months. Physical examination reveals a palpable dorsal osteophyte off the first MTP joint with swelling and tenderness. Arthritis in the first MTP joint is contributing to inflammation and pain, including a bone spur known as hallux ri gidus. - Occasional cortisone shots - Finding comfortable footwear - Performing stretching exercises for the Achilles tendon to help normalize walking - A boot will be prescribed for use post-surgery - First MTP cheilectomy to remove the bone spur and clean out inflammation - Immediate weight-bearing in a protective boot post-surgery - Ice application and limited activity for 2 weeks post-surgery - Stitch removal and gradual return to normal footwear and activities over 3 to 4 months - Stretching exercises for the Achilles tendon post-surgery - The boot will be fitted today for postoperative use Informed consent was obtained for left foot first MTP cheilectomy. The risks, benefits, and alternatives of that procedure, the postoperative protocol, and the short term and long-term expectations were explained to the patient and/or patient guardian in detail. This discussion included the possible results of not having this intervention performed and the benefits and risks of these alternatives. If a non-autologous graft is planned, I have additionally discussed the risks, benefits, and alternatives to the use of such grafts. I explained the great importanceof compliance with postoperative instructions. The patient and/or guardian was encouraged to ask questions and those questions were answered to their satisfaction. The patient and/or guardian verbalized understanding of the discussion. Israel Simpson MD Foot and Ankle Surgeon Please note that this wafer mounter was created using voice recognition software. Any errors are unintentional and may be due to voice recognition wafer mounter. The provider informed the patient (or legal access services representative) on the use of the ambient listening artificial intelligence tool, [employer] Copilot to obtain consent to its use. It was explained that this AI tool processes the conversation to generate a clinical note with the expected benefit of improved accuracy with a goal of improving the encounter experience for the patient and provider.?The provider explained that the medical information captured by the AI tool would be protected by applicable privacy laws. The patient was given an opportunity to ask questions and opt out of proceeding with the use of the AI tool. After being informed of such information, the patient (or legal access services representative), and each individual in attendance with the patient, consented to the use of the AI tool. Israel Simpson MD documented in this encounter Plan of Treatment Upcoming Encounters Date Type Department Care Team (Late st Contact Info) Description 12/27/2024 10:20 AM EDT Hospital Encounter [facility] [address] [place] [id number] [place] [address] [place] [id number] 12/27/2024 10:20 AM EDT - 12/27/2024 10:50 AM EDT Surgery [facility] [address] [place] [address] Israel Simpson MD [address] [address] FIRST METATARSAL PHALANGEAL OR HALLUX CHEILECTOMY 01/11/2025 9:00 AM EDT Office Visit [facility] [address] [address] Sim Johns PA-C [address] [place] [address] Scheduled Orders Name Type Priority Associated Diagnoses Orde r Schedule SURGICAL/PROCEDURE CASE REQUEST - [facility] Procedures Routine Synovitis of toe Arthritis Of First Metatarsophalangeal (Mtp) Joint Of Left Foot Ordered: 11/27/2024 Scheduled Procedures Name Priority Associated Diagnoses Date/Ti me FIRST METATARSAL PHALANGEAL OR HALLUX CHEILECTOMY Synovitis of toe Arthritis of first metatarsophalangeal (MTP) joint of left foot 12/27/2024 10:20 AM EDT documented as of this encounter Visit Diagnoses Diagnosis Synovitis of toe- Primary Tenosynovitis of foot and ankle Arthritis of first metatarsophalangeal (MTP) joint of left foot Synovitis of toe Tenosynovitis of foot and ankle Arthritis of first metatarsophalangeal (MTP) joint of left foot Synovitis of toe Tenosynovitis of foot and ankle Arthritis of first metatarsophalangeal (MTP) joint of left foot documented in this encounter Orders Nursing Count Last Ordered Date First Orde red Date AMB OC SURGERY COMMUNICATION ORDER 1 2024 documented in this encounter
--- OUTSIDE RECORDS SUMMARY | 2024-12-05 13:08 | XMS_ITS | Clinical Summary ---
Author Organization [facility] Address [address] [place] [address] Phone Care Team Providers Care Cafe Manager Name Role Phone Unavailable Primary Care [...] mg Oral Tablet Take by mouth. Active Active Problems Problem Noted Date Diagnosed Date Synovitis of toe 11/27/2024 Arthritis of first metatarso phalangeal (MTP) joint of left foot 11/27/2024 Trigger thumb of left hand 03/09/2022 Overview (03/09/2022): Added automatically from request for surgery [id number] Carpal tunnel syndrome of left wrist 07/03/2014 Resolved Problems Problem Noted Date Diagnosed Date Resolved Date Trigger thumb of right hand 07/03/2014 03/23/2022 Encounters Date Type Department Care Team Description 11/27/2024 8:45 AM EDT Office Visit [facility] [address] [place], [place] [phone] Israel Simpson MD Synovitis of toe (Primary Dx); Arthritis of first metatarsophalangeal (MTP) joint of left foot 2024 1:00 PM EDT Office Visit [facility] [address] [place] [phone] Sim Johns PA-C Synovitis of left foot (Primary Dx) 10/03/2024 12:15 PM EDT Ancillary Procedure [facility] [address] [facility] [address] [place] [address] Berlin Bailey APRN Left foot pain 10/03/2024 12:00 PM EDT Ancillary Procedure [facility] [address] [place] [address] Berlin Bailey APRN Left foot pain 10/03/2024 11:45 AM EDT Office Visit [facility] [address] [place], [place] [address] [phone] Berlin Bailey APRN Synovitis of left foot (Primary Dx); Left foot pain from Last 3 Months Surgical History Surgery Date Site/Laterality Comments SECTION x1 DENTAL SURGERY wisdom teeth CARPAL TUNNEL RELEASE 07/05/2014 Surgeon: Thomas Jeong MD; Location: [facility]; Service: Hand BREAST SURGERY Right cyst CARPAL TUNNEL RELEASE 03/26/2022 Hand/Wrist/Left left CARPAL TUNNEL RELEASE AND left thumb A-1 EMMY RELEASE; Surgeon: Thomas Jeong MD; Location: [facility]; Service: Hand Medical History Medical History [...] 2024 12:52 PM EDT Plan of Treatment Upcoming Encounters Date Type Department Care Team (Late st Contact Info) Description 12/27/2024 10:20 AM EDT Hospital Encounter [facility] [address] [place] [phone] Israel Simpson MD [address] [address] 12/27/2024 10:20 AM EDT - 12/27/2024 10:50 AM EDT Surgery [facility] [address] [place] [id number] [place] [address] [place] [id number] FIRST METATARSAL PHALANGEAL OR HALLUX CHEILECTOMY 01/11/2025 9:00 AM EDT Office Visit [facility] [address] [address] Sim Johns PA-C [address] [place] [phone] Scheduled Procedures Name Priority Associated Diagnoses Date/Ti me FIRST METATARSAL PHALANGEAL OR HALLUX CHEILECTOMY Synovitis of toe Arthritis of first metatarsophalangeal (MTP) joint of left foot 12/27/2024 10:20 AM EDT Health Maintenance Due Date Last Done Comments [...] 5 season) 2024 Influenza Vaccine (#1) 2025 Meningococcal B Vaccine Aged Out No l onger eligible based on patient's age to complete this topic Procedures Procedure Name Priority Date/Time Associated Diagnosis Comments SC ARTHROCNT ASPIR&/INJ SMALL JT/BURSAW/US REC RPRT Routine 2024 1:00 PM EDT Synovitis of left foot XR FOOT LEFT AP AND LATERAL STANDING Routine 10/03/2024 11:54 AM EDT Left foot pain XR ANKLE LEFT AP LATERAL AND OBLIQUE INCLUDING STANDING Routine 10/03/2024 11:54 AM EDT Left foot pain from Last 3 Months Results * SC ARTHROCNT ASPIR&/INJ SMALL JT/BURSAW/US REC RPRT (2024 [...] PROCEDURE/MINOR SURGICAL OR DERABLES Final Result [facility] * XR FOOT LEFT AP AND LATERAL STANDING (10/03/2024 11:54 AM EDT) Narrative Genericuser, Audit - 10/03/2024 11:56 AM EDT Please see physician's note from office encounter for x-ray imaging result Berlin Bailey APRN IMG DIAGNOSTIC IMAGING ORDERABL ES Final Result * XR ANKLE LEFT AP LATERAL AND OBLIQUE INCLUDING STANDING (10/03/2024 11:54 AM EDT) Narrative Genericuser, Audit - 10/03/2024 11:54 AM EDT Please see physician's note from office encounter for x-ray imaging result Berlin Bailey PRIMER WATERPROOFING MACHINE ADJUSTER IMG DIAGNOSTIC IMAGING ORDERABL ES Final Result from Last 3 Months Insurance [employer] [place] [id number] [address] [employer] [facility] [place] [id number] [place]
--- NOTE | 2024-12-05 13:30 | MM_ITS ---
PROCEDURE INFORMATION: Exam: MG Bilateral Screening 3D Mammography Exam date and time: 12/05/2024 1:35 PM Age: 54 years old Clinical indication: Screening exam. TECHNIQUE: Imaging protocol: Bilateral Screening tomosynthesis and 2D mammography including computer-aided detection (CAD) when performed. COMPARISON: 1. MG MM SURGICAL SPECIMEN RT 05/15/2021 9:25 AM 2. MG REPEAT VIEW MM 05/13/2021 8:56 AM 3. SCREENING MAMMOGRAM 08/17/2019 10:30 A.M. FINDINGS: MAMMOGRAPHY: Breast composition: The breasts are heterogeneously dense, which may obscure small masses. Mass: No suspicious masses. Architectural distortion: Postsurgical changes redemonstrated right breast. Calcifications: No suspicious calcifications. Asymmetric density: None. Skin thickening: None. Axillary adenopathy: None. IMPRESSION: No mammographic evidence of malignancy. Annual screening is recommended unless otherwise clinically indicated. ASSESSMENT: BI-RADS Category 2: Benign.
== END 2024-12-05 23:59 | disposition home or self-care (01) ==
LOC: RAD 13:05
PROVIDERS: PCP Nurse Practitioner Family; Visit Provider Obstetrics & Gynecology
DX: Z12.31 Encounter for screening mammogram for malignant neoplasm of breast (principal); R92.333 Mammographic heterogeneous density, bilateral breasts
CPT/HCPCS: 77063; 77067